=== PATIENT | female | born 1955 | race Caucasian/White ===

== ENCOUNTER 2020-01-15 07:13 | Inpatient (IN) ==
--- NOTE | 2020-01-03 09:03 | Anesthesiology Consultation ---
Date of Service January 03, 2020 Assessment & Plan (1) Encounter for pre-operative examination: Chart Review Chart Review: Acceptable Risk for Surgery and Patient NOT seen in Pre Admission Testing Pt seen by cardio 10/31/19= probable history of nonobstructive CAD with the most recent cath in approximately 2007. Questionable history of CHF. Hypertension. Patient underwent recent echo, which revealed normal LV size with hyperdynamic function and EF of 70%, type I diastolic dysfunction, normal RV size and function, no significant valvular heart disease, degree of tricuspid regurgitation was inadequate to assess her degree of of pulmonary hypertension (unable to obtain ECHO report from cardio office). Patient's recent stress test and echo are reassuring. There is nothing to suggest significant RV dysfunction or pulmonary hypertension. "I believe her risk of cardiac complications is in the range of 3%. This includes heart attack, dying from cardiac causes, arrhythmias and congestive heart failure. From my standpoint, she can proceed with the surgery. She does have significant underlying lung disease, which will also potentially complicate her surgery." Follow-up in 6 months. History Surgery Operation Date: 01/15/20 07:00 Proposed Procedures p Right Total Hip Arthroplasty - Colby Ryan MD Height/Weight Height: 5 ft 4 in Weight: 115.213 kg Allergies Allergy/AdvReac Type Severity Reaction Status Date / Time Tetracyclines Allergy Mild Rash Verified 12/13/19 13:16 Medications Home Medications Medication Instructions Recorded Confirmed Last Taken albuterol sulfate 2 inh INHALATION QID PRN 10/25/19 10/25/19 Unknown amlodipine 2.5 mg PO QPM 10/25/19 10/25/19 Unknown cholecalciferol (vitamin D3) 2,000 unit PO QPM 10/25/19 10/25/19 Unknown [Vitamin D3] furosemide 40 mg PO BID PRN 10/25/19 10/25/19 Unknown hydrocodone-acetaminophen 1 tab PO Q4H PRN 10/25/19 10/25/19 Unknown magnesium oxide 400 mg PO QPM 10/25/19 10/25/19 Unknown naproxen [Naprosyn] 500 mg PO BID PRN 10/25/19 10/25/19 Unknown nitroglycerin [Nitro-Dur] 1 patch TRANSDERMAL DAILY 10/25/19 10/25/19 Unknown omega 6-bwf-ffh-fish oil [Fish Oil] 1 cap PO QPM 10/25/19 10/25/19 Unknown omeprazole 20 mg PO BID 10/25/19 10/25/19 Unknown potassium chloride 24 meq PO DAILY 10/25/19 10/25/19 Unknown Past Medical History Medical History (Updated 01/07/20 @ 14:39 by Poonam Batista PA-C) Anxiety Chronic back pain Chronic obstructive pulmonary disease GERD (gastroesophageal reflux disease) Heart palpitations ON NITRO PATCH DAILY- BETA BLOCKERS CAUSE FATIGUE PER CARDIO NOTE Hypertension Non-occlusive coronary artery disease Presumed per cardio note (had cardiac cath 2003 and 2007) On home oxygen therapy WEARS 2.5L AT HS CARLOS (obstructive sleep apnea) Rheumatoid arthritis Past Family History Family History Father Family history of diabetes mellitus Past Surgical History Surgical History (Updated 01/07/20 @ 14:33 by Poonam Batista PA-C) History of cardiac cath X 2-LAST ONE 10 YRS AGO History of cholecystectomy History of colonoscopy History of esophagogastroduodenoscopy (EGD) Social History Smoking Status: Current every day smoker tobacco type: cigarettes Do You Dip or Chew Tobacco: No Smoking End Date: 1 PPD "ONLY SMOKES HALF THE CIGG" Hx Alcohol Use: No Hx Substance Use: No Testing Laboratory Results Blood Type O Positive 12/19/19 14:33 Antibody Screen NEGATIVE 12/19/19 14:33 Laboratory Tests 12/19/19 12/19/19 12/19/19 14:31 14:31 14:31 WBC 7.81 Hgb 13.2 Hct 40.5 Plt Count 264 PT 9.9 INR 0.9 APTT 29.6 Sodium 139 Potassium 3.6 Chloride 106 Carbon Dioxide 28 BUN 18 Creatinine 0.66 Glucose 89 Electrocardiogram Date: 10/11/19 Findings: + NSR @ (74) Nonspecific ST abnormality Chest X-Ray Date: 12/19/19 Mild cardiomegaly. Mild chronic venolymphatic congestive change may be present. No other convincing evidence of acute cardiopulmonary disease. Stress Test Date: 10/17/19 Type: DSE Resting EF: 70% Resting LV Function: Hyperdynamic Resting RWMA: + none Negative dobutamine EKG for ischemia. Mild cLVH. Negative DSE for ischemia at 88%MPHR.
--- NOTE | 2020-01-14 13:49 | History & Physical Report ---
Date of Service January 14, 2020 Assessment & Plan (1) Degenerative joint disease of right hip: Approximately 20 minutes were spent with the patient and her daughter reviewing operative procedure, postoperative recovery, physical therapy requirements and medication use. Postoperative prescriptions for oxycodone and Coumadin will be provided at discharge from the hospital. Anticipate discharge to home with home health nursing or placement at a intermediate facility. Preoperative lab work, EKG, and chest x-ray have been ordered. She has already seen cardiology and been given clearance to proceed. Risk of cardiac complications is in the range of 3%. The patient answers negative to the COVID questions. She will obtain COVID testing a few days prior to surgery and then self quarantine. She already has a walker. New x-rays were obtained today. The patient's surgery is elective, but urgent secondary to her level of pain and the extent of her degenerative disease. History of Present Illness Chief Complaint: Right hip pain Primary Care Provider: Hilaria Rahman MD This 64-year-old white female presents today with her daughter, for evaluation of a longstanding history of right hip pain. Symptoms have been ongoing for greater than a year. She has tried activity modification, intraarticular cortisone injections, and oral pain medications with minimal improvement. No specific trauma. She states she has been through a weight loss program and lost approximately 100 pounds total. She is a smoker. She has tried NSAIDs, which have not helped with the pain. She is currently on hydrocodone for pain management. She has difficulty with ambulating any significant distance. She does use a walker as well as wheelchair to get around. Pain is worse with weightbearing. It is affecting her ADLs. Preoperative imaging has been obtained. She elects to proceed with Right total hip arthroplasty. Allergies Allergy/AdvReac Type Severity Reaction Status Date / Time Tetracyclines Allergy Mild Rash Verified 12/13/19 13:16 Ewoimxv-Ymu-Che Reductase AdvReac Mild muscle Verified 01/14/20 13:49 Inhibitor aches Home Medications Home Medications Medication Instructions Recorded Confirmed Type albuterol sulfate 2 inh INHALATION QID PRN 10/25/19 10/25/19 History amlodipine 2.5 mg PO QPM 10/25/19 10/25/19 History cholecalciferol (vitamin D3) 2,000 unit PO QPM 10/25/19 10/25/19 History [Vitamin D3] furosemide 40 mg PO BID PRN 10/25/19 10/25/19 History hydrocodone-acetaminophen 1 tab PO Q4H PRN 10/25/19 10/25/19 History magnesium oxide 400 mg PO QPM 10/25/19 10/25/19 History naproxen [Naprosyn] 500 mg PO BID PRN 10/25/19 10/25/19 History nitroglycerin [Nitro-Dur] 1 patch TRANSDERMAL DAILY 10/25/19 10/25/19 History omega 5-eft-azy-fish oil [Fish Oil] 1 cap PO QPM 10/25/19 10/25/19 History omeprazole 20 mg PO BID 10/25/19 10/25/19 History potassium chloride 24 meq PO DAILY 10/25/19 10/25/19 History Past Med/Surg History Medical History Anxiety Chronic back pain Chronic obstructive pulmonary disease GERD (gastroesophageal reflux disease) Heart palpitations ON NITRO PATCH DAILY- BETA BLOCKERS CAUSE FATIGUE PER CARDIO NOTE Hypertension Non-occlusive coronary artery disease Presumed per cardio note (had cardiac cath 2003 and 2007) On home oxygen therapy WEARS 2.5L AT HS CARLOS (obstructive sleep apnea) Rheumatoid arthritis Surgical History History of cardiac cath X 2-LAST ONE 10 YRS AGO History of cholecystectomy History of colonoscopy History of esophagogastroduodenoscopy (EGD) Family History Father Family history of diabetes mellitus Social History Preferred Language: Paraguayan Communication Ability: Effective Visual Impairment: No Limitations Hearing Ability: Normal Operations Processor Required: No Beliefs That Will Affect Care: None marital status: / Current Living Situation: Family current occupational status: previously employed 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 Physical Exam Physical Exam: Weight is 117 kg, BMI 45.6. General: Well-developed, well-nourished, morbidly obese, elderly white female in no acute distress. Obvious discomfort. Sitting in a wheelchair. Alert and oriented. Skin: Warm and dry with good turgor. No rashes or lesions. No ecchymosis or erythema. HEENT: Normocephalic, atraumatic. Eyes: PERRLA, EOMI. Oropharynx and nares exam deferred. She is wearing a mask. Cardiovascular: RRR, no MGR. Lungs: Lungs have expiratory wheezing in all valdez, worse in the right lower lobe. This does not clear with coughing. No crackles or rhonchi. Fair air movement. Abdomen: Morbidly obese, bowel sounds present x4, soft, nontender. No organomegaly. No masses. Musculoskeletal: Right hip evaluation reveals no obvious asymmetry or deformity. She has no pain with palpation over the greater trochanter or IT band. She has significant discomfort with passive and active motion of the hip. Hip flexion only to around 90 degrees, internal and external rotation. It is also limited for internal and external rotation, to about 5 degrees in either direction. Strength is 3/5 for resisted hip flexion. Intact motor function of the knee. Neurologic: Gross sensation is intact across both lower extremities by soft touch. Peripheral pulses are 1+. Results & Data Results & Data ([facility]) Diagnostic Findings Radiographic imaging previously obtained shows endstage DJD of her right hip. Periarticular osteophytes, subchondral sclerosis, and joint space narrowing are all present. Subchondral cyst formation is also present.
[~2020-01-15 07:13] MED LIST: CEFAZOLIN 3000MG 72.5 ML IV SCH; LR 15ML/HR IV SCH; LR 60ML/HR IV SCH; ROPIVACAINE 0.5% HCL/PF 150 MG, BUPIVACAINE 0.5% MPF 30 ML, EPINEPHrine 0.15 MG, Ketoro... INFIL SCH; TRANEXAMIC ACID 1,000 MG **IV Pre-op IV SCH
[2020-01-15] MEDS ORDERED: BUPIVACAINE 0.5 % 5 MG/1 ML PF 10ML VIAL ONE (07:39)
[2020-01-15] MEDS ORDERED: MIDAZOLAM HCL 1 MG/ML 2ML VIAL ONE (08:17)
[2020-01-15] MEDS ORDERED: fentaNYL citrate 100 MCG/2 ML VIAL ONE (08:17)
--- NOTE | 2020-01-15 08:29 | History & Physical Bridge Note ---
Date of Service January 15, 2020 History & Physical Bridge Note I have examined the patient, reviewed the History & Physical and in the interval since the performance of the History & Physical I have noted the following changes of clinical significance: consent obtained/covid screen negative /site verified.no changes noted
[2020-01-15] MEDS ORDERED: ATROPINE SULFATE 0.1 MG/ML 10ML SYR IV PRN (08:52)
[2020-01-15] MEDS ORDERED: ePHEDrine sulfate 50 MG/ML AMP IV PRN (08:52)
[2020-01-15] MEDS ORDERED: ONDANSETRON INJ 2 MG/ML 2 ML VIAL IV PRN ×2 (08:52→12:05)
[2020-01-15] MEDS ORDERED: fentaNYL citrate 100 MCG/2 ML VIAL IV PRN (08:52)
[2020-01-15] MEDS ORDERED: HYDROmorphone INJ 1 MG/ML SYRINGE IV PRN (08:52)
[2020-01-15] MEDS ORDERED: ORTHO JOINT ANESTHETIC ONE (08:53)
--- NOTE | 2020-01-15 10:52 | Post Operative Brief Note ---
Immediate Post Op Note v1 Date of Surgery January 15, 2020 Pre & Post Diagnosis Operation Date: 01/15/20 09:30 Pre-Op Diagnosis: Right Hip Degenerative Joint Disease Post-Op Diagnosis: Right Hip Degenerative Joint Disease I identified the patient and participated in the time-out.: Yes Procedure Operation Date: 01/15/20 09:30 Actual Procedures p Right Total Hip Arthroplasty, Uncemented(Right) - Colby Ryan MD Surgeon Colby Ryan MD [facility] Estimated Blood Loss 200 Findings Consistent with Post-Op Diagnosis
--- NOTE | 2020-01-15 11:09 | Operative Report ---
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 She had tried conservative care measures including activity modification, oral pain medication, and assistive devices, without improvement. She elected to proceed with surgical intervention after being educated about potential risks and outcomes. Preoperative imaging was obtained. Description of Procedure Patient was administered a spinal anesthetic and then taken to the operating room where she was given sedation. She was prepped and draped in the usual sterile fashion. Please see Dr. Ryan's operative report for specifics of the procedure. I was present for the entire case from initial patient positioning through final wound closure. Assistance was provided in tissue retraction, hemostasis, trial implant placement, final implant placement, and final wound closure. Patient was taken to the recovery room in satisfactory condition. I attest to the content of the Intraoperative Record and any orders documented therein. Any exceptions are noted below.
[2020-01-15] MEDS ORDERED: PROPOFOL IV EMULSION 10 MG/ML 20 ML VIAL IV ONE (11:11)
--- NOTE | 2020-01-15 11:33 | Operative Report (OR) ---
DATE OF OPERATION: 01/15/2020 SURGEON: Colby Ryan MD. FINANCIAL SYSTEMS MANAGER: Jere Fisher PA-C. No resident or fellow available. PREOPERATIVE DIAGNOSIS: Severe osteoarthritis with marked deformity of her right hip. POSTOPERATIVE DIAGNOSIS: Severe osteoarthritis with marked deformity of her right hip. OPERATION PERFORMED: Noncemented right hip replacement. SUMMARY OF IMPLANTS: Size 50 acetabular shell sector cup, size 25 screw, size 32 x 50 +4 neutral liner, 3 high offset Tri-Lock stem 32+5 ceramic head. ESTIMATED BLOOD LOSS: 200 mL. PATHOLOGY: Pending on bone. DEEP VENOUS THROMBOSIS PROPHYLAXIS: Per protocol. DESCRIPTION OF OPERATION: The patient was appropriately identified, site verified, consent verified. Antibiotics confirmed an as being given. The right lower extremity was prepped and draped in usual routine fashion with the patient in left lateral decubitus position. She is a very large woman with high BMI. Appropriate incision made. Two Charnleys were required for retraction. IT band and gluteus perry fascia opened, care taken to protect the sciatic nerve with deep retractors. Short external rotators released. Capsule T'd. Hip dislocated. Femoral neck resected. There was a large involuted labrum, marked degenerative change, hypertrophic synovium and osteophytes. These were all cleaned out. Serial reaming carried up to a 50 and a 50 cup impacted into appropriate anteversion and inclination. A 6.5 x 25 screw was placed with excellent purchase. A trial liner was seated. Femur was then flexed and internally rotated. The proximal femur prepared with box maker wood, canal finder, lateralizing rasp, and serial broaching up to a size 3 and trial reduction with the appropriate implants was very stable and leg lengths were good. The hip was then dislocated. All remaining trial elements were removed. The wound was irrigated with Betadine, Pulsavac, hole eliminator seated, permanent liner seated, permanent stem and head seated. The hip reduced. It was stable in all planes. Leg lengths good. The wound was irrigated with Betadine, Pulsavac and closed deep layers using #2 Vicryl, 2-0 Vicryl and stainless steel clips. Appropriate dressing applied. She will have a Prevena based on size. She was transferred to recovery room in satisfactory condition having tolerated the procedure well. PERIOPERATIVE SITUATION: A large woman with high BMI, severe disease in the femoral neck with acetabular erosion, high risk patient, cleared for surgery. She understands the risks as well as her family. Please see consent. I attest to the content of the Intraoperative Record and any orders documented therein. Any exception s are noted below.
--- NOTE | 2020-01-15 11:47 | XRay Report ---
AP PELVIS History: Right total hip arthroplasty. Degenerative arthritis. Postop. FINDINGS: The patient is status post a right total hip arthroplasty. The hardware is intact. No fract ure or dislocation. Skin yamileth are in place. IMPRESSION: Right total hip arthroplasty. No evidence for hardware complication ACT 112: Negative or not required by law. Electronically signed by: Yang Loza M.D. 01/15/2020 11:46 AM
[2020-01-15] MEDS ORDERED: METOCLOPRAMIDE HCL INJ 5 MG/ML 2 ML VIAL IV PRN (12:05)
[2020-01-15] MEDS ORDERED: ALUMINUM/MAGNESIUM SUSP 30 ML UDC PO PRN (12:05)
[2020-01-15] MEDS ORDERED: bisacodyL 10 MG SUPP PR PRN (12:05)
[2020-01-15] MEDS ORDERED: DiphenhydrAMINE HCL 50 MG/ML VIAL IV PRN (12:05)
[2020-01-15] MEDS ORDERED: NALOXONE HCL 0.4 MG/1 ML VIAL/CARP IV PRN (12:05)
[2020-01-15] MEDS ORDERED: MAGNESIUM HYDROXIDE SUSP 30 ML UDC PO PRN (12:05)
[2020-01-15] MEDS ORDERED: ALBUTEROL HFA 8 GM INHALER INH PRN (12:05)
[2020-01-15] MEDS ORDERED: SODIUM CHLORIDE 0.9% 1000ML 1,000 ML IV SCH (12:35)
[2020-01-15] MEDS ORDERED: VANCOMYCIN HCL 1,750 MG in SODIUM CHLORIDE 0.9% 500 ML IV ONE (13:15)
[2020-01-15] MEDS: KETOROLAC 30 MG/ML VIAL IV SCH ×3 (13:20→23:29)
--- NOTE | 2020-01-15 13:25 | Progress Notes ---
DATE: 01/15/2020 SUBJECTIVE: Status post right total hip replacement. The patient is doing well and sitting up in bed. She denies any chest pain, shortness of breath, fever, chills, nausea, vomiting or headache. OBJECTIVE: Vital signs are stable. She is afebrile. Neurologic exam is limited by spinal wearing off. Hip is located. Postop x-rays look excellent. ASSESSMENT: Doing well status post right total hip replacement for severe disease. Continue with postop care pathway and prepare for discharge tomorrow.
--- NOTE | 2020-01-15 13:32 | Discharge Summary (DS) ---
CHIEF COMPLAINT: Right hip pain. HISTORY OF PRESENT ILLNESS: The patient is admitted for elective right total hip replacement for severe disease. Hospital course to date has been uneventful. At this point in time, she will be ambulatory to tolerance with postural indiscretion restrictions. PAST MEDICAL HISTORY: Remarkable for anxiety, chronic back pain, chronic obstructive pulmonary disease, GERD, heart palpitations, hypertension, coronary artery disease, obstructive sleep apnea, rheumatoid arthritis. PAST SURGICAL HISTORY: Reveals that she has had cardiac cath in the past, cholecystectomy, colonoscopy, EGD. FAMILY HISTORY: Reveals diabetes mellitus. SOCIAL HISTORY: Reveals that she has no visual or communication or hearing problems. She does not require an automobile technician. 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 She feels safe at home. She does smoke. No alcohol use. No substance use. REVIEW OF SYSTEMS: Noncontributory. Postoperative x-rays look excellent. ASSESSMENT: Status post right total hip replacement. Plan is for social service assessment. Case management assessment and discharge tomorrow. She will be placed in a Prevena based on high BMI.
[2020-01-15] MEDS: ACETAMINOPHEN 500 MG TAB PO SCH ×2 (14:28→21:05)
[2020-01-15] MEDS: HYDROmorphone INJ 0.5 MG/0.5 ML SYR IV PRN ×2 (15:10→19:39)
[2020-01-15] MEDS ORDERED: Nursing to Pharmacy Communication ONE (15:25)
[2020-01-15] MEDS ORDERED: ORTHO WARFARIN NOMOGRAM SCH (15:30)
[2020-01-15] MEDS: ASCORBIC ACID 500 MG TAB PO SCH (15:56)
[2020-01-15] MEDS: FERROUS GLUCONATE 324 MG TAB PO SCH (15:56)
[2020-01-15] MEDS ORDERED: WARFARIN SOD 5 MG TAB PO ONE (16:00)
--- NOTE | 2020-01-15 16:36 | Anesthesiology Progress Note ---
Date of Service January 15, 2020 Anesthesia Post Procedure Vital Signs Vital Signs: Temp Pulse Pulse Pulse Resp BP BP 01/15/20 15:17 36.6 C 82 16 145/88 H 01/15/20 13:10 36.5 C 18 L 70 158/87 H 01/15/20 12:41 36.5 C 75 18 153/98 H 01/15/20 12:08 36.6 C 75 16 144/78 H 01/15/20 11:55 75 16 145/83 H 01/15/20 11:45 36.3 C L 75 18 140/86 01/15/20 11:35 72 18 161/82 H 01/15/20 11:25 70 18 151/94 H 01/15/20 11:15 81 20 134/91 01/15/20 11:05 36.5 C 91 H 16 158/91 H 01/15/20 08:11 36.9 C 76 20 134/102 H Pulse Ox 01/15/20 15:17 91 01/15/20 13:10 96 01/15/20 12:41 96 01/15/20 12:08 95 01/15/20 11:55 98 01/15/20 11:45 96 01/15/20 11:35 95 01/15/20 11:25 97 01/15/20 11:15 100 01/15/20 11:05 100 01/15/20 08:11 95 Pain Intensity Right Leg: Pain Intensity: 10 Transfer of Care Handoff Completed per policy Notes Mental Status: alert / awake / arousable and participated in evaluation Patient Amnestic to Procedure: Yes Nausea / Vomiting: adequately controlled Pain: adequately controlled Airway Patency, RR, SpO2: stable & adequate BP & HR: stable & adequate Hydration State: stable & adequate Neuraxial Anesthesia: was administered and sensory block is resolving Anesthetic Complications: no major complications apparent and Pt Satisfied with anesthetic care
[2020-01-15] MEDS: CEFAZOLIN 2000MG 2,000 MG/15 ML SYR IV SCH (16:38)
[2020-01-15] MEDS ORDERED: TRANEXAMIC ACID / 0.7% NACL 1,000 MG/100 ML BAG IV SCH (17:15)
[2020-01-15] MEDS: PANTOprazole 40 MG TAB PO SCH (20:48)
[2020-01-15] MEDS: DOCUSATE SODIUM 100 MG CAP PO SCH (20:49)
[2020-01-15] MEDS ORDERED: SENNA 8.6 MG TAB PO SCH (21:00)
[2020-01-15] MEDS ORDERED: AMLODIPINE BESYLATE 5 MG TAB PO SCH (21:00)
[2020-01-15] MEDS ORDERED: MAGNESIUM OXIDE 400 MG TAB PO SCH (21:00)
[2020-01-16] MEDS: CEFAZOLIN 2000MG 2,000 MG/15 ML SYR IV SCH (01:22)
[2020-01-16] MEDS: OXYCODONE HCL IR 5 MG TAB (IMMEDIATE RELEASE) PO PRN ×2 (01:22→09:05)
[2020-01-16] MEDS: KETOROLAC 30 MG/ML VIAL IV SCH (06:20)
[2020-01-16] MEDS: ACETAMINOPHEN 500 MG TAB PO SCH (06:20)
--- NOTE | 2020-01-16 07:26 | Progress Notes ---
DATE: 01/16/2020 SUBJECTIVE: Postop day #1 status post right total hip replacement. The patient is sitting up in bed. Pain is managed with oral meds. She notes no chest pain, shortness of breath, fever, chills, nausea, vomiting, or headache. OBJECTIVE: Vital signs are stable. She is afebrile. Laboratory work is pending. Wound dressing clean, dry, and intact. Neurovascular check, femoral sciatic nerve is good. Hip is located and has supple motion. She reacts with any type of activity with a blurting "ow" despite not causing pain. ASSESSMENT AND PLAN: Status post right hip replacement. At this point in time, needs to be extremely motivated by personnel to get up and move. She will start her Coumadin again today. She needs to be mobilized and needs to have a Prevena placed. She is at high risk for DVT, PE based on her size. It was emphasized to her that she needs to get up and move around. She is also a tobacco user, needs to minimize that. She knows she is high risk and she decided to have the procedure. She will need to continue to be compliant as possible. We will discharge to home today after dressing change and PT, OT.
[2020-01-16 07:37] LABS: Basophils # (auto) 0.02 K/uL (0-0.2); Basophils % (auto) 0.2 %; Eosinophils # (auto) 0.14 K/uL (0-0.5); Eosinophils % (auto) 1.3 %; Hematocrit (blood only) 37.1 % (37-47); Hemoglobin 12.2 g/dL (12.0-16.0); Immature Granulocytes # (auto) 0.03 K/uL (0.00-0.02); Immature Granulocytes % (auto) 0.3 %; Lymphocytes # (auto) 1.87 K/uL (1.2-3.4); Lymphocytes % (auto) 16.9 %; Mean Corpuscular Hemoglobin 28.1 pg (25-34); Mean Corpuscular Hgb Conc 32.9 g/dL (32-36); Mean Corpuscular Volume 85.5 fL (80-100); Mean Platelet Volume 10.5 fL (7.4-10.4); Monocytes # (auto) 1.37 K/uL (0.11-0.59); Monocytes % (auto) 12.4 %; Neutrophils # (auto) 7.61 K/uL (1.4-6.5); Neutrophils % (auto) 68.9 %; Platelet Count 223 K/uL (130-400); RDW Standard Deviation 46.8 fL (36.4-46.3); Red Blood Count 4.34 M/uL (4.2-5.4); White Blood Count 11.04 K/uL (4.8-10.8)
[2020-01-16 07:45] LABS: Prothrombin Time 10.9 Seconds (9.0-12.0)
[2020-01-16] MEDS ORDERED: dexAMETHasone 10 MG in SYRINGE 0 ML IV SCH (08:00)
[2020-01-16 08:14] LABS: BUN Creatinine Ratio 26.5 (10-20); Calcium 9.1 mg/dl (8.5-10.1); Creatinine Clr Calc Pharmacy 115.8 ml/min; Est GFR (African American) 110.7; Est GFR (Non-African American) 95.5; Potassium 3.3 mmol/L (3.5-5.1)
[2020-01-16] MEDS: DOCUSATE SODIUM 100 MG CAP PO SCH (08:53)
[2020-01-16] MEDS: ASCORBIC ACID 500 MG TAB PO SCH (08:53)
[2020-01-16] MEDS: FERROUS GLUCONATE 324 MG TAB PO SCH (08:54)
[2020-01-16] MEDS: PANTOprazole 40 MG TAB PO SCH (08:55)
[2020-01-16] MEDS ORDERED: NITROGLYCERIN 0.2 MG/HR PATCH TD SCH (09:00)
[2020-01-16] MEDS ORDERED: MULTIVITAMIN TAB PO SCH (09:00)
[2020-01-16] MEDS ORDERED: POTASSIUM CHLORIDE 20 MEQ TABCR PO SCH (09:00)
[2020-01-16] MEDS ORDERED: NICOTINE 21 MG/24 HR TDSY TD SCH (09:00)
--- NOTE | 2020-01-16 10:38 | Orthopedic Progress Note ---
Date of Service January 16, 2020 Assessment & Plan (1) Status post total hip replacement, right: Patient's dressing was removed by me. Prevena wound VAC was placed. She will leave this in place for a week and follow-up with me in the office 01/22 at 11 AM for removal. PT/OT today. Weight-bear as tolerated. Coumadin today per nomogram. Prescriptions for Percocet 5/325 mg and Coumadin 2 mg were sent to her pharmacy. Total hip precautions were reviewed. Detailed written discharge instructions were provided. Patient will be discharged home with home health nursing services. Admission and Anticipated Discharge Date Admission Date: January 15, 2020 Subjective Patient is seen in her room this morning. She is sitting in a chair. She denies any chest pain, shortness of breath, nausea, vomiting, or abdominal pain overnight. She states her right hip is uncomfortable but denies any severe pain. She is inquiring about going home today versus tomorrow. Review of Systems Review of Systems: unchanged from yesterday Physical Exam Physical Exam: General: Well-developed, well-nourished, elderly female, in no acute distress. Sitting in a chair. Alert and oriented. Skin: Warm and dry with good turgor. No rashes or lesions. Expected postoperative ecchymosis at the right thigh. No erythema. Postsurgical dressing is in place. Upon removal, yamileth are in place. Minimal drainage on her dressings. No active bleeding. The patient is not diaphoretic. Musculoskeletal: Patient has intact motor function to the right leg. She is able to stand from a sitting position. She appears to bear full weight. Supple motion of the right hip. Neurologic: Gross sensation is intact across the lower extremities by soft touch. Peripheral pulses are 2+. Results & Data ([facility]) Vital Signs (Past 12 Hours) Vital Signs Temp Pulse Resp BP Pulse Ox 01/16/20 07:47 37 C 78 22 135/96 93 01/16/20 03:05 37.0 C 81 16 127/77 97 01/15/20 23:13 37.5 C 96 H 18 147/86 H 95 Laboratory Results H&H obtained this morning are 12.2 and 37.1. WBCs 11.0. INR is 1.0. PRP is unremarkable.
[2020-01-16] MEDS ORDERED: WARFARIN SOD 5 MG TAB PO ONE (12:00)
== END 2020-01-16 13:02 | disposition home health service (06) | DRG 470 ==
LOC: ASU 07:13 → 3N 11:17

== ENCOUNTER 2020-09-30 05:04 | Observation (INO) ==
--- NOTE | 2020-09-01 11:58 | PAT Medication Instructions ---
Medication Instructions Date of Service September 01, 2020 Home Medications Medication Instructions Recorded oxycodone-acetaminophen [Percocet] 2 tab PO Q4H PRN #24 tab 01/16/20 albuterol sulfate 2 inh INHALATION QID PRN amlodipine 2.5 mg PO QPM cholecalciferol (vitamin D3) [Vitamin D3] 2,000 unit PO QPM magnesium oxide 400 mg PO QPM nitroglycerin [Nitro-Dur] 1 patch TRANSDERMAL DAILY omeprazole 20 mg PO BID potassium chloride 8 - 16 meq PO BID oxycodone-acetaminophen [Percocet] 2 tab PO Q4H PRN aspirin [Aspir-81] 81 mg PO QAM Continue as directed nitroglycerin [Nitro-Dur] 1 patch TRANSDERMAL DAILY ASK your prescriber and surgeon aspirin [Aspir-81] 81 mg PO QAM DO NOT take the morning of surgery potassium chloride 8 - 16 meq PO BID Take morning of surgery With a small sip of water, OTHERWISE NOTHING TO EAT OR DRINK AFTER MIDNIGHT: albuterol sulfate 2 inh INHALATION QID PRN (use if needed; please bring with you to hospital day of surgery if possible) omeprazole 20 mg PO BID oxycodone-acetaminophen [Percocet] 2 tab PO Q4H PRN (okay to take up to 4 hours prior to surgery if needed) Take evening before surgery albuterol sulfate 2 inh INHALATION QID PRN (if needed) amlodipine 2.5 mg PO QPM cholecalciferol (vitamin D3) [Vitamin D3] 2,000 unit PO QPM magnesium oxide 400 mg PO QPM omeprazole 20 mg PO BID potassium chloride 8 - 16 meq PO BID oxycodone-acetaminophen [Percocet] 2 tab PO Q4H PRN (if needed) Other Notes If you have any questions please call us at [phone] or [phone] or [phone] or [phone]
--- NOTE | 2020-09-03 14:52 | Anesthesiology Consultation ---
Date of Service September 03, 2020 Assessment & Plan (1) Encounter for pre-operative examination: Chart Review Chart Review: Pending: Refer to Additional Notes / Consult section (pending surgeon ordered PCP clearance, most recent cardio note, and preop Covid testing ) and Patient seen in Pre Admission Testing Awaiting surgeon ordered PCP clearance scheduled 09/14/20 or 09/15/20. Will attempt to get most recent cardio note Per PAT appt on 09/03/20, pt resides in [facility]. Wears mask, uses good hand hygiene and socially distances. Pt's son tested Covid positive 07/12/20- pt did quarantine from patient. Son's symptoms have resolved and he is back to work. Pt denies any current or recent Covid symptoms with exception to chronic minimal cough from smoking- unchanged. Scheduled for preop Covid testing = will await results Right MISAEL 01/15/20= Done with SAB at L3-4 with two attempts- no anesthesia issues noted per anesthesia record. Teaching & Discussion Pre-Anesthesia Teaching/Discussion Notes: Instructed NPO after midnight before surgery,except medications with 15 cc of water. Medication instructions provided according to the PAT guidelines. History Surgery Operation Date: 09/30/20 07:15 Proposed Procedures p Right Total Knee Arthroplasty - Colby Ryan MD Height/Weight Height: 5 ft 4.5 in Weight: 114.2 kg Allergies Allergy/AdvReac Type Severity Reaction Status Date / Time Bgnghig-Sif-Rqu Reductase AdvReac Mild muscle Verified 08/11/20 13:40 Inhibitor aches Medications Home Medications Medication Instructions Recorded Confirmed Last Taken albuterol sulfate 2 inh INHALATION QID PRN 10/25/19 08/11/20 01/15/20 04:00 amlodipine 2.5 mg PO QPM 10/25/19 08/11/20 01/14/20 18:00 cholecalciferol (vitamin D3) 2,000 unit PO QPM 10/25/19 08/11/20 01/14/20 18:00 [Vitamin D3] magnesium oxide 400 mg PO QPM 10/25/19 08/11/20 01/14/20 18:00 nitroglycerin [Nitro-Dur] 1 patch TRANSDERMAL DAILY 10/25/19 08/11/20 01/14/20 18:00 omeprazole 20 mg PO BID 10/25/19 08/11/20 01/14/20 06:00 potassium chloride 8 - 16 meq PO BID 10/25/19 08/11/20 01/14/20 18:00 oxycodone-acetaminophen [Percocet] 2 tab PO Q4H PRN #24 tab 01/16/20 08/11/20 Unknown aspirin [Aspir-81] 81 mg PO QAM 08/11/20 08/11/20 Unknown Past Medical History Medical History Anxiety Chronic back pain Chronic obstructive pulmonary disease Breathing - stable and controlled GERD (gastroesophageal reflux disease) Well controlled and stable Heart palpitations ON NITRO PATCH DAILY- BETA BLOCKERS CAUSE FATIGUE PER CARDIO NOTE Hypertension Non-occlusive coronary artery disease Presumed per cardio note (had cardiac cath 2003 and 2007) On home oxygen therapy WEARS 2.5L AT HS CARLOS (obstructive sleep apnea) Was not able to complete sleep study for device- uses only oxygen at night Rheumatoid arthritis Does not follow with rheum Exercise / Class Metabolic Activity III < 4 Walking/Shop/Light housework (no chest pain or SOB with short distances, flat surface ambulation - uses cane ) Past Family History Family History Father Family history of diabetes mellitus Past Surgical History Surgical History History of cardiac cath X 2-LAST ONE 10 YRS AGO History of cholecystectomy History of colonoscopy History of esophagogastroduodenoscopy (EGD) History of total hip arthroplasty RIGHT Past Anesthesia History No Hx of Anesthesia Complications and No Family Hx of Anesthesia Complications History of PONV No Hx of PONV and No Hx of Motion Sickness Social History Smoking Status: Current every day smoker tobacco type: cigarettes Smoking cigarettes per day: 10 CIGS A DAY PAST 2-3 YRS-HAS SMOKED X 40 YRS Do You Dip or Chew Tobacco: No Hx Alcohol Use: No Hx Substance Use: Yes substance use type: prescription drug Review of Systems Chronic cough and chronic wheezing from smoking - stable and unchanged Blood transfusion- s/p childbirth Patient denies chest pain, shortness of breath at rest, reflux, palpitations. No hx of seizures, stroke, MA. No hx of blood clots. Physical Exam Vital Signs VITALS BP 135/86 P 69 TEMP 97.9 SP02 94% RESP 16 Constitutional no acute distress ENMT Mouth: no TMJ clicking Thyromental Distance: < 3.5 Finger Breadths (3.0) Mallampati Class: II (smaller ) Full denture top and bottom Neck + short neck, + thick neck and + limited neck extension (moderate ) Respiratory normal respiratory effort; no respiratory distress Auscultation: no wheezes Course breath sounds throughout Cardiovascular Rate/Rhythm: regular rate and regular rhythm Heart Sounds: no murmur Vessels: no carotid bruit Musculoskeletal Spine: + pain with cervical ROM (mild tightness ) Extremities: extremities normal to inspection Psychiatric Orientation: alert Testing Laboratory Results 09/03/20 15:06 09/03/20 15:06 PT 10.3 Seconds (9.0-12.0) 09/03/20 15:06 INR 1.0 (0.9-1.1) 09/03/20 15:06 APTT 31.0 Seconds (21.0-31.0) 09/03/20 15:06 Urine Color Yellow 09/03/20 Unknown Urine Appearance Clear (Clear) 09/03/20 Unknown Urine pH 7.5 (4.5-7.5) 09/03/20 Unknown Ur Specific [place] 1.020 (1.000-1.030) 09/03/20 Unknown Urine Protein Negative (Negative) 09/03/20 Unknown Urine Glucose (UA) Negative (Negative) 09/03/20 Unknown Urine Ketones Negative (Negative) 09/03/20 Unknown Urine Nitrite Negative (Negative) 09/03/20 Unknown Ur Leukocyte Esterase Negative (Negative) 09/03/20 Unknown Blood Type O Positive 09/03/20 15:06 Antibody Screen NEGATIVE 09/03/20 15:06 Electrocardiogram Date: 09/03/20 NSR with sinus arrythmia at 68bpm. Normal EKG. Chest X-Ray Date: 09/03/20 Findings: + NAD and + cardiomegaly (mild) Unchanged interstitial coarsening no pneumothorax, pleural effusion, airspace consolidation or overt pulmonary edema. Stress Test Date: 10/17/19 Type: DSE Resting EF: 70% Resting LV Function: Hyperdynamic Resting RWMA: + none Negative dobutamine EKG for ischemia. Mild cLVH. Negative DSE for ischemia at 88%MPHR. Cervical Spine Date: 09/03/20 There is multilevel disc space narrowing present, moderate at C5-C6. Mostly mild multilevel spondylitic spurring with moderate facet arthrosis. 2 mm retrolisthesis C5 on C6 is unchanged with neutral, flexion and extension. No acute fracture or subluxation.
--- NOTE | 2020-09-03 15:44 | XRay Report ---
XR chest Pre-admission PA/Lat HISTORY: 64 years-old Female pat preoperative exam. Acute cough. COMPARISON: Chest radiographs 12/19/2019 TECHNIQUE: PA and lateral views of the chest FINDINGS: Cardiac silhouette is mildly enlarged. Unchanged interstitial coarsening no pneumothorax, pleural eff usion, airspace consolidation or overt pulmonary edema. Degenerative changes of the shoulders and spi ne. Cholecystectomy. IMPRESSION: No acute process. ACT 112: Negative or not required by law. The above report was generated using voice recognition software. It may contain grammatical, syntax o r spelling errors. Electronically signed by: Fran Vee M.D. 09/03/2020 3:42 PM
--- NOTE | 2020-09-03 15:45 | XRay Report ---
XR cervical spine 2 or 3V HISTORY: 64 years-old Female preop- RA- 2-3 veiw with flex, ext, neut positions preoperative exam. COMPARISON: None TECHNIQUE: 3 views of the cervical spine FINDINGS: Patient is edentulous. Unremarkable soft tissues. Demineralized appearance of the bones. There is mul tilevel disc space narrowing present, moderate at C5-C6. Mostly mild multilevel spondylitic spurring with moderate facet arthrosis. 2 mm retrolisthesis C5 on C6 is unchanged with neutral, flexion and ex tension. IMPRESSION: 1. No acute fracture or subluxation. 2. Degenerative changes as above. 3. Unchanged alignment with neutral, flexion and extension. ACT 112: Negative or not required by law. The above report was generated using voice recognition software. It may contain grammatical, syntax o r spelling errors. Electronically signed by: Fran Vee M.D. 09/03/2020 3:44 PM
[2020-09-03 15:49] LABS: Appearance Urine Clear (Clear); Bilirubin Urine Negative (Negative); Blood Urine Negative (Negative); Color Urine Yellow; Glucose Urine UA Negative (Negative); Ketones Urine Negative (Negative); Leukocyte Esterase Urine Negative (Negative); Nitrite Urine Negative (Negative); Protein Urine Negative (Negative); Urobilinogen Urine Negative (Negative); pH Urine 7.5 (4.5-7.5)
[2020-09-03 15:53] LABS: Basophils # (auto) 0.04 K/uL (0-0.2); Basophils % (auto) 0.5 %; Eosinophils # (auto) 0.31 K/uL (0-0.5); Eosinophils % (auto) 4.1 %; Hemoglobin 13.5 g/dL (12.0-16.0); Immature Granulocytes # (auto) 0.02 K/uL (0.00-0.02); Immature Granulocytes % (auto) 0.3 %; Lymphocytes # (auto) 2.66 K/uL (1.2-3.4); Lymphocytes % (auto) 34.9 %; Mean Corpuscular Hemoglobin 27.9 pg (25-34); Mean Corpuscular Hgb Conc 32.1 g/dL (32-36); Mean Corpuscular Volume 86.8 fL (80-100); Mean Platelet Volume 10.1 fL (7.4-10.4); Monocytes % (auto) 6.6 %; Neutrophils % (auto) 53.6 %; Platelet Count 243 K/uL (130-400); RDW Coefficient of Variation 16.2 % (11.5-14.5); RDW Standard Deviation 51.5 fL (36.4-46.3); Red Blood Count 4.84 M/uL (4.2-5.4); White Blood Count 7.63 K/uL (4.8-10.8)
[2020-09-03 15:58] LABS: Partial Thromboplastin Ratio 1.1; Prothrombin Time 10.3 Seconds (9.0-12.0)
[2020-09-03 16:12] LABS: BUN Creatinine Ratio 26.1 (10-20); Calcium 9.4 mg/dl (8.5-10.1); Creatinine Clr Calc Pharmacy 88.7 ml/min; Est GFR (African American) 91.8; Est GFR (Non-African American) 79.2
--- NOTE | 2020-09-04 06:22 | Electrocardiogram Report ---
Test Reason : Blood Pressure : / mmHG Vent. Rate : 068 BPM Atrial Rate : 068 BPM P-R Int : 174 ms QRS Dur : 090 ms QT Int : 422 ms P-R-T Axes : 054 035 041 degrees QTc Int : 448 ms Normal sinus rhythm with sinus arrhythmia Normal ECG When compared with ECG of 26-JUL-2008 11:05, Nonspecific T wave abnormality no longer evident in Inferior leads T wave inversion no longer evident in Anterior leads Confirmed by Calvin Arredondo ([id number]) on 09/04/2020 6:21:57 AM Referred By: Colby Ryan Confirmed By:Calvin Arredondo
--- NOTE | 2020-09-06 19:23 | History & Physical Report ---
Date of Service September 06, 2020 Assessment & Plan (1) Right knee DJD: Postoperative prescriptions for Percocet and Coumadin will be provided at discharge from the hospital. Anticipate discharge to home with home health services. Preoperative lab work, EKG, and chest x-ray have been ordered. Medical clearance has been requested from her PCP, Hilaria Rahman. COVID-19 nasal swab was ordered. The patient is aware of the COVID-19 risks associated with surgery. She is currently asymptomatic of any COVID-19 symptoms. PDMP was checked and there are no concerning findings. She already has a walker and cane. Informed written consent will be obtained the morning of surgery. History of Present Illness Chief Complaint: Right knee pain Primary Care Provider: Hilaria Rahman MD This 64-year-old white female presents today with her daughter, for her preoperative history and physical. She is scheduled to undergo a right knee total knee arthroplasty on 09/30/2020. The patient has had a longstanding history of right knee pain. Pain is worse with weightbearing. It is affecting her ADLs. She has tried activity modification, oral pain medication, and viscosupplementation without improvement. She has DJD in both knees, but the right knee is the worst. Denies any numbness or tingling. Preoperative imaging has been obtained. She previously went through total hip arthroplasty 7 months ago and did well with that. Allergies Allergy/AdvReac Type Severity Reaction Status Date / Time Rudxuxo-Ftz-Utk Reductase AdvReac Mild muscle Verified 08/11/20 13:40 Inhibitor aches Home Medications Medication Instructions Recorded Confirmed Type albuterol sulfate 2 inh INHALATION QID PRN 10/25/19 08/11/20 History amlodipine 2.5 mg PO QPM 10/25/19 08/11/20 History cholecalciferol (vitamin D3) 2,000 unit PO QPM 10/25/19 08/11/20 History [Vitamin D3] magnesium oxide 400 mg PO QPM 10/25/19 08/11/20 History nitroglycerin [Nitro-Dur] 1 patch TRANSDERMAL DAILY 10/25/19 08/11/20 History omeprazole 20 mg PO BID 10/25/19 08/11/20 History potassium chloride 8 - 16 meq PO BID 10/25/19 08/11/20 History oxycodone-acetaminophen [Percocet] 2 tab PO Q4H PRN #24 tab 06/04/20 12/29/20 Rx aspirin [Aspir-81] 81 mg PO QAM 08/11/20 08/11/20 History Past Med/Surg History Medical History Anxiety Chronic back pain Chronic obstructive pulmonary disease Breathing - stable and controlled GERD (gastroesophageal reflux disease) Well controlled and stable Heart palpitations ON NITRO PATCH DAILY- BETA BLOCKERS CAUSE FATIGUE PER CARDIO NOTE Hypertension Non-occlusive coronary artery disease Presumed per cardio note (had cardiac cath 2003 and 2007) On home oxygen therapy WEARS 2.5L AT HS CALROS (obstructive sleep apnea) Was not able to complete sleep study for device- uses only oxygen at night Rheumatoid arthritis Does not follow with rheum Surgical History History of cardiac cath X 2-LAST ONE 10 YRS AGO History of cholecystectomy History of colonoscopy History of esophagogastroduodenoscopy (EGD) History of total hip arthroplasty RIGHT Family History Father Family history of diabetes mellitus Social History Smoking Status: Current every day smoker Cigarettes Per Day: 10 CIGS A DAY PAST 2-3 YRS-HAS SMOKED X 40 YRS; Second Hand Exposure: Yes (FAMILY SMOKED); Do You Dip or Chew Tobacco: No; Hx Alcohol Use: No Hx Substance Use: No Preferred Language: Uzbek Communication Ability: Effective Visual Impairment: No Limitations Hearing Ability: Normal Site Project Manager Required: No Beliefs That Will Affect Care: None marital status: Single Current Living Situation: Family current occupational status: previously employed 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 Physical Exam Physical Exam: Vitals: Height 157.5 cm, weight 114.4 kilograms, BMI 46.1. Temperature 36.6, BP 116/82, pulse 72, O2 sat 94% on room air. General: Well-developed, well-nourished, elderly, white female in no acute distress. Sitting in a chair. Alert and oriented. Morbidly obese. Skin: Warm and dry with fair turgor. No rashes or lesions. No ecchymosis or erythema. HEENT: Normocephalic, atraumatic. Eyes: PERRLA, EOMI. Oropharynx and nares exams deferred due to COVID precautions. She is wearing a mask. Heart: RRR, no MGR. Lungs: Expiratory wheezing in all valdez, worst in the right upper and lower valdez. It does not clear with coughing. No crackles or rhonchi. Fair air movement. Abdomen: Morbidly obese, bowel sounds present x4, soft, nontender. No organomegaly. No masses. Musculoskeletal: Right knee evaluation reveals no intraarticular effusion. No redness or warmth. The patient is ambulatory with antalgic gait. She has full terminal extension. Flexion to 95 degrees. Strength is 5/5 with fair quad tone. She has focal discomfort with palpation over the lateral joint line. No medial joint line discomfort. No palpable crepitus with motion. No defect in the patellar tendon or quadriceps tendon. Stable collateral ligaments. Neurologic: Gross sensation is intact across the right leg by soft touch. Peripheral pulses are 2+. Results & Data Results & Data ([facility]) Diagnostic Findings Radiographic imaging obtained today of the right knee shows end-stage DJD with tricompartmental arthritis, worst in the medial and patellofemoral joints. Periarticular osteophytes and subchondral sclerosis are also present.
[2020-09-30] MEDS ORDERED: ROPIVACAINE 0.5% HCL/PF 150 MG, BUPIVACAINE 0.75% MPF 20 ML, EPINEPHrine 0.15 MG, Ketor... INFIL SCH (06:00)
[2020-09-30] MEDS ORDERED: LR 60ML/HR IV SCH (06:00)
[2020-09-30] MEDS ORDERED: LR 500ML BOLUS, THEN 15ML/HR IV SCH (06:00)
[2020-09-30] MEDS ORDERED: TRANEXAMIC ACID 1,000 MG **IV Pre-op IV SCH (06:00)
[2020-09-30] MEDS ORDERED: ROPIVACAINE 0.5% 5 MG/ML 30 ML VIAL ONE (06:21)
[2020-09-30] MEDS ORDERED: BUPIVACAINE 0.5 % 5 MG/1 ML PF 10ML VIAL ONE (06:21)
--- NOTE | 2020-09-30 06:28 | History & Physical Bridge Note ---
Date of Service September 30, 2020 History & Physical Bridge Note I have examined the patient, reviewed the History & Physical and in the interval since the performance of the History & Physical I have noted the following changes of clinical significance: consent obtained/site verified/covid screen negative.no changes noted
[2020-09-30] MEDS ORDERED: fentaNYL citrate 100 MCG/2 ML VIAL ONE (06:38)
[2020-09-30] MEDS ORDERED: MIDAZOLAM HCL 1 MG/ML 2ML VIAL ONE (06:38)
[2020-09-30] MEDS ORDERED: ORTHO JOINT ANESTHETIC ONE (06:44)
[2020-09-30] MEDS ORDERED: fentaNYL citrate 100 MCG/2 ML VIAL IV PRN (07:04)
[2020-09-30] MEDS ORDERED: HYDROmorphone INJ 2 MG/ML SYR/VIAL IV PRN (07:04)
[2020-09-30] MEDS ORDERED: ePHEDrine sulfate 50 MG/ML AMP IV PRN (07:04)
[2020-09-30] MEDS ORDERED: ATROPINE SULFATE 0.1 MG/ML 10ML SYR IV PRN (07:04)
[2020-09-30] MEDS ORDERED: PROPOFOL IV EMULSION 10 MG/ML 20 ML VIAL IV ONE (07:33)
[2020-09-30] MEDS ORDERED: LIDOCAINE HCL 2% 2 ML VIAL/AMP(20MG/ML) INFIL ONE (07:33)
[2020-09-30] MEDS ORDERED: KETAMINE 50 MG/5 ML SYRINGE ONE (07:37)
--- NOTE | 2020-09-30 08:32 | Post Operative Brief Note ---
Immediate Post Op Note v1 Date of Surgery September 30, 2020 Pre & Post Diagnosis Operation Date: 09/30/20 07:00 Pre-Op Diagnosis: Right Knee Degenerative Joint Disease Post-Op Diagnosis: Right Knee Degenerative Joint Disease I identified the patient and participated in the time-out.: Yes Procedure Operation Date: 09/30/20 07:00 Actual Procedures p Right Total Knee Arthroplasty(Right) - Colby Ryan MD Surgeon Colby Ryan MD Logistics Officer luc/brigido Estimated Blood Loss 50 Findings Consistent with Post-Op Diagnosis
--- NOTE | 2020-09-30 08:42 | Operative Report ---
Post Operative Report Pre & Post Diagnosis Operation Date: 09/30/20 07:00 Pre-Op Diagnosis: Right Knee Degenerative Joint Disease Post-Op Diagnosis: Right Knee Degenerative Joint Disease I identified the patient and participated in the time-out.: Yes Procedure Operation Date: 09/30/20 07:00 Actual Procedures p Right Total Knee Arthroplasty(Right) - Colby Ryan MD Surgeon AUDIE Ryan MD Geodetic Engineer luc/brigido TORREZ Estimated Blood Loss 50 Findings Consistent with Post-Op Diagnosis Specimens see operative report Drains none Complications none Disposition Accompanied Patient To Recovery: Yes Disposition: Recovery Room Indications This 64-year-old female presented to the office with complaints of persisting right knee pain. She had tried conservative care measures without improvement. She elected to proceed with surgical intervention after being educated about potential risks and outcomes. Preoperative imaging was obtained. Description of Procedure Patient was given a spinal anesthetic and then taken to the operating room and given sedation. She was prepped and draped in the usual sterile fashion. Please see Dr. Ryan's operative report for specifics of the procedure. I was present for the entire case from initial patient positioning through final wound closure. Assistance was provided in tissue retraction, hemostasis, trial implant placement, final implant placement, and final wound closure. Patient was taken to the recovery room in satisfactory condition. I attest to the content of the Intraoperative Record and any orders documented therein. Any exceptions are noted below.
--- NOTE | 2020-09-30 08:49 | Operative Report ---
Post Operative Report Pre & Post Diagnosis Operation Date: 09/30/20 07:00 Pre-Op Diagnosis: Right Knee Degenerative Joint Disease Post-Op Diagnosis: Right Knee Degenerative Joint Disease I identified the patient and participated in the time-out.: Yes Procedure Operation Date: 09/30/20 07:00 Actual Procedures p Right Total Knee Arthroplasty(Right) - Colby Ryan MD Surgeon Colby Ryan MD Visual Journalist luc/brigido TORREZ Estimated Blood Loss 50 Findings Consistent with Post-Op Diagnosis Specimens bone cuts Anesthesia Type Spinal MAC Complications none Disposition Accompanied Patient To Recovery: Yes Disposition: Recovery Room Description of Procedure As per 's note I assisted in prepping and draping, instruments handling, certain parts of the procedure and wound closure. I attest to the content of the Intraoperative Record and any orders documented therein. Any exceptions are noted below.
--- NOTE | 2020-09-30 08:55 | Operative Report (OR) ---
DATE OF OPERATION: 09/30/2020 SURGEON: Colby Ryan MD. HOPPER ATTENDANT: Dr. Horton. SECOND HOPPER ATTENDANT: Jere Fisher PA-C. PREOPERATIVE DIAGNOSIS: Osteoarthritis, right knee. POSTOPERATIVE DIAGNOSIS: Osteoarthritis, right knee. OPERATION PERFORMED: Cemented right total knee replacement. SUMMARY OF IMPLANTS: Size 2.5 right femur, size 2.5 mobile bearing tray tibia, size 2.5 x 10 mm insert posterior cruciate substituting, size 38 patella, 2 bags of Palacos G cement. Bone pathology pending. DVT prophylaxis per protocol. PERIOPERATIVE SITUATION: Medically cleared female with intractable bilateral knee pain, has had hip replacement on the right, now wants to proceed with right knee replacement. She understands the risks and consequences. This was described in detail multiple times. DESCRIPTION OF PROCEDURE: The patient was appropriately identified, site verified, consent verified. Antibiotics confirmed as being given. The right lower extremity was prepped and draped in usual routine fashion. She had a conical leg. Anterior exposure made. Sharp dissection through skin and blunt dissection to the fascia. Parapatellar arthrotomy performed. Synovectomy completed, extensor mechanism had some entrapment. This was released. The patella could then be everted. Femur was flexed, menisci resected. Distal femur entered. Cruciates resected. Distal femur resected 12 mm, proximal tibia 4 mm, the extension gap was excellent. Femur was sized between a 2.5, it was measured 3 cut 2.5. There was no anterior notching. The capsule medially was tied, it was released. This allowed good flexion gap checking. Posterior capsule was then injected. The femur was then placed into position. After the anterior and posterior condylar chamfer cuts made and the box cut made and size 2 required a little bit of revision of the box to get to sit appropriately and once that was done, it sat excellently. Tibia was then broached and reamed to 2.5 and 10 mm spacer placed. The knee tracked well. The knee was stable in full extension and mid range flexion. Patella was resected leaving 15 mm then the 38 button template seated and fit well. The seating hole was made and the trial tracked well. The Orthomix was then injected all around the anterior aspect of the knee. All implants then removed. The wound irrigated with Betadine Pulsavac and then cemented in position, tibia, femur and patella in that order. After 12 minutes the tourniquet deflated. After 14 minutes, the knee flexed. Minor cement removal required. Knee irrigated. No major issues seen with the implant. Everything looked fixed well and appropriately positioned. The patella tracked well. The knee was then closed at 40 degrees of flexion with #2 Vicryl, 2-0 Vicryl and stainless steel clips. Appropriate dressing applied. The patient transferred to recovery room in satisfactory condition having tolerated the procedure well. ESTIMATED BLOOD LOSS: Roughly 50 mL PATHOLOGY: Pending on bone. CRYSTALLOID: Per anesthesia. DVT prophylaxis per protocol. I attest to the content of the Intraoperative Record and any orders documented therein. Any exception s are noted below.
--- NOTE | 2020-09-30 09:06 | XRay Report ---
RIGHT KNEE 2 VIEWS History: Right total knee arthroplasty. Degenerative arthritis. Postop. FINDINGS: The patient is status post a right total knee arthroplasty. The hardware is intact. No frac ture or dislocation. Skin yamileth are in place. IMPRESSION: Right total knee arthroplasty. No evidence for hardware complication. ACT 112: Negative or not required by law. Electronically signed by: Yang Loza M.D. 09/30/2020 9:04 AM
[2020-09-30] MEDS ORDERED: VANCOMYCIN HCL 1,750 MG in SODIUM CHLORIDE 0.9% 500 ML IV SCH (09:15)
[2020-09-30] MEDS ORDERED: bisacodyL 10 MG SUPP PR PRN (10:01)
[2020-09-30] MEDS ORDERED: MAGNESIUM HYDROXIDE SUSP 30 ML UDC PO PRN (10:01)
[2020-09-30] MEDS ORDERED: SODIUM CHLORIDE 0.9% 1000ML 1,000 ML IV SCH (10:01)
[2020-09-30] MEDS ORDERED: ALBUTEROL HFA 8 GM INHALER INH PRN (10:01)
[2020-09-30] MEDS ORDERED: diphenhydrAMINE 50 MG/ML VIAL IV PRN (10:01)
[2020-09-30] MEDS ORDERED: NALOXONE HCL 0.4 MG/1 ML VIAL/CARP IV PRN (10:01)
[2020-09-30] MEDS ORDERED: METOCLOPRAMIDE HCL INJ 5 MG/ML 2 ML VIAL IV PRN (10:01)
[2020-09-30] MEDS ORDERED: ONDANSETRON INJ 2 MG/ML 2 ML VIAL IV PRN (10:01)
[2020-09-30] MEDS ORDERED: HYDROmorphone INJ 0.5 MG/0.5 ML SYR IV PRN (10:01)
[2020-09-30] MEDS ORDERED: ALUMINUM/MAGNESIUM SUSP 30 ML UDC PO PRN (10:01)
[2020-09-30] MEDS: KETOROLAC TROMETHAMINE 15 MG/ML VIAL IV SCH ×3 (11:14→22:19)
[2020-09-30] MEDS: DOCUSATE SODIUM 100 MG CAP PO SCH ×2 (11:15→20:12)
[2020-09-30] MEDS: PANTOprazole 40 MG TAB PO SCH ×2 (11:15→20:12)
[2020-09-30] MEDS: MULTIVITAMIN TAB PO SCH (11:15)
[2020-09-30] MEDS: ASPIRIN 81 MG ECTAB PO SCH (11:15)
[2020-09-30] MEDS: oxyCODONE HCL IR 5 MG TAB (IMMEDIATE RELEASE) PO PRN ×4 (11:16→23:56)
--- NOTE | 2020-09-30 11:18 | Progress Notes ---
DATE: 09/30/2020 SUBJECTIVE: Postop right total knee replacement. The patient is sleeping comfortably. I woke her up by tapping her foot. She denies any right knee pain. She states her back hurts, which is her usual. She denies any numbness or tingling. She denies chest pain, shortness of breath, fever, chills, nausea, vomiting, or headache. OBJECTIVE: Vital signs are stable. She is afebrile. Neurovascular check of femoral sciatic nerve is normal. Wound dressing is clean, dry and intact. Postoperative x-rays look excellent. ASSESSMENT: Doing well. PLAN: Continue care pathway. Hep lock/saline lock IV when she eats lunch. Continue to use for meds only. Discharge tomorrow.
--- NOTE | 2020-09-30 11:34 | Discharge Summary (DS) ---
CHIEF COMPLAINT: Right knee pain. HISTORY OF PRESENT ILLNESS: The patient underwent elective right total knee replacement. Hospital course to the present time has been uneventful. She continues on care plan.. She will be discharged tomorrow. Postop x-rays look excellent. She denies chest pain, shortness of breath, fever, chills, nausea, vomiting or headache. PAST MEDICAL HISTORY: Remarkable for anxiety, back pain, COPD, GERD, heart palpitations, hypertension, coronary artery disease, home O2 use, obstructive sleep apnea, rheumatoid arthritis. PAST SURGICAL HISTORY: Includes cholecystectomy, colonoscopies, EGDs, right hip replacement, cardiac cath. REVIEW OF SYSTEMS: Noncontributory as noted above. SOCIAL HISTORY: Reveals that she smokes, secondhand exposure is positive. No chewing tobacco. Social alcohol. ASSESSMENT: Status post right total knee replacement, doing well. Discharge to home. Case management already had been seeing the patient. Discharge tomorrow if she does well. SHUBHAM
--- NOTE | 2020-09-30 11:42 | Anesthesiology Progress Note ---
Date of Service September 30, 2020 Anesthesia Post Procedure Vital Signs Vital Signs: Temp Pulse Pulse Pulse Resp BP Pulse Ox 09/30/20 10:40 36.3 C L 73 18 125/85 98 09/30/20 10:10 36.3 C L 66 18 155/79 H 96 09/30/20 09:40 36.5 C 72 16 134/82 96 09/30/20 09:25 70 17 140/76 94 09/30/20 09:10 36.8 C 70 19 143/76 H 95 09/30/20 09:00 71 18 149/80 H 96 09/30/20 08:50 67 15 150/79 H 97 09/30/20 08:43 36.8 C 78 16 125/78 98 09/30/20 05:42 36.5 C 72 18 164/88 H 96 Transfer of Care Handoff Completed per policy Notes Mental Status: alert / awake / arousable and participated in evaluation Patient Amnestic to Procedure: Yes Nausea / Vomiting: adequately controlled Pain: adequately controlled Airway Patency, RR, SpO2: stable & adequate BP & HR: stable & adequate Hydration State: stable & adequate Neuraxial Anesthesia: was administered and sensory block is resolving Anesthetic Complications: no major complications apparent
[2020-09-30] MEDS ORDERED: ORTHO WARFARIN NOMOGRAM SCH (14:00)
[2020-09-30] MEDS: ACETAMINOPHEN 500 MG TAB PO SCH ×2 (14:23→22:19)
[2020-09-30] MEDS: ceFAZolin 2000MG 2,000 MG/15 ML SYR IV SCH ×2 (14:23→22:19)
[2020-09-30] MEDS ORDERED: TRANEXAMIC ACID / 0.7% NACL 1,000 MG/100 ML BAG IV SCH (15:00)
[2020-09-30] MEDS ORDERED: WARFARIN SOD 5 MG TAB PO ONE (16:00)
[2020-09-30] MEDS: FERROUS GLUCONATE 324 MG TAB PO SCH (17:15)
[2020-09-30] MEDS: ASCORBIC ACID 500 MG TAB PO SCH (17:16)
[2020-09-30] MEDS ORDERED: NITROGLYCERIN 0.2 MG/HR PATCH TD SCH (17:30)
[2020-09-30] MEDS: POTASSIUM CHLORIDE 10 MEQ TABCR PO SCH (20:13)
[2020-09-30] MEDS ORDERED: MAGNESIUM OXIDE 400 MG TAB PO SCH (21:00)
[2020-09-30] MEDS ORDERED: amLODIPine BESYLATE 5 MG TAB PO SCH (21:00)
[2020-09-30] MEDS ORDERED: SENNA 8.6 MG TAB PO SCH (21:00)
[2020-10-01] MEDS: oxyCODONE HCL IR 5 MG TAB (IMMEDIATE RELEASE) PO PRN ×2 (04:18→08:34)
[2020-10-01] MEDS: ACETAMINOPHEN 500 MG TAB PO SCH (05:48)
[2020-10-01] MEDS: KETOROLAC TROMETHAMINE 15 MG/ML VIAL IV SCH (05:49)
[2020-10-01 06:21] LABS: Hemoglobin 11.3 g/dL (12.0-16.0); Mean Corpuscular Hemoglobin 28.8 pg (25-34); Mean Corpuscular Hgb Conc 33.2 g/dL (32-36); Mean Corpuscular Volume 86.7 fL (80-100); Mean Platelet Volume 10.7 fL (7.4-10.4); Platelet Count 245 K/uL (130-400); RDW Coefficient of Variation 15.5 % (11.5-14.5); RDW Standard Deviation 49.3 fL (36.4-46.3); Red Blood Count 3.92 M/uL (4.2-5.4); White Blood Count 9.96 K/uL (4.8-10.8)
[2020-10-01 06:47] LABS: Prothrombin Time 10.3 Seconds (9.0-12.0)
[2020-10-01 06:54] LABS: BUN Creatinine Ratio 28.9 (10-20); Calcium 8.5 mg/dl (8.5-10.1); Creatinine Clr Calc Pharmacy 103.4 ml/min; Est GFR (African American) 106.7; Est GFR (Non-African American) 92.1; Potassium 3.7 mmol/L (3.5-5.1)
--- NOTE | 2020-10-01 07:43 | Progress Notes ---
DATE: 10/01/2020 SUBJECTIVE: Postop day #1 status post right total knee replacement. The patient is doing well, sitting up in her chair. She actually can still do straight leg raise. She denies chest pain, shortness of breath, fever, chills, nausea, vomiting, or headache. She has the usual back pain. OBJECTIVE: Neurovascular check, femoral sciatic nerve is normal. Calves nontender. Dressing has some mild drainage. LABORATORY DATA: Hematocrit is stable at 34. INR is 1.0. ASSESSMENT AND PLAN: Doing well. Discharged to home today. Discharged on 4 mg. Dressing changed. Please leave dressing change on until Monday and then nursing she can do it at home after that. Have her check up in a week just for wound check based on the size of her leg.
[2020-10-01] MEDS ORDERED: dexAMETHasone 10 MG in SYRINGE 0 ML IV SCH (08:00)
[2020-10-01] MEDS: MULTIVITAMIN TAB PO SCH (08:35)
[2020-10-01] MEDS: DOCUSATE SODIUM 100 MG CAP PO SCH (08:35)
[2020-10-01] MEDS: PANTOprazole 40 MG TAB PO SCH (08:35)
[2020-10-01] MEDS: ASPIRIN 81 MG ECTAB PO SCH (08:35)
[2020-10-01] MEDS: ASCORBIC ACID 500 MG TAB PO SCH (08:36)
[2020-10-01] MEDS: POTASSIUM CHLORIDE 10 MEQ TABCR PO SCH (08:36)
[2020-10-01] MEDS: FERROUS GLUCONATE 324 MG TAB PO SCH (08:36)
--- NOTE | 2020-10-01 10:02 | Orthopedic Progress Note ---
Date of Service October 01, 2020 Assessment & Plan (1) Status post total right knee replacement using cement: Patient was seen in her room. Dressings were changed by me. New pressure dressing was applied. She has no active bleeding. Patient will be discharged to home today with home health services. She received PT/OT prior to departure. Prescriptions for Percocet and Coumadin have been sent to her pharmacy. Written discharge instructions have been provided. Continue ambulating with her walker. Follow-up in the office in 2 weeks as scheduled for staple removal. Call the office with any other concerns. Admission and Anticipated Discharge Date Admission Date: September 30, 2020 Subjective Patient is seen in her room this morning. She is sitting in a chair. States she did not sleep well last night. She does have some knee pain. She is also complaining of her back. Denies any chest pain, shortness of breath, nausea, or vomiting. No abdominal pain. She has been out of bed already. She feels ready to go home. Denies any numbness or tingling. No other complaints. Review of Systems Review of Systems: Unchanged from yesterday. Physical Exam Physical Exam: General: Well-developed, well-nourished, obese elderly white female, in no acute distress. Laying on the bed. Alert and oriented. Conversive. Skin: Warm and dry with good turgor. No rashes. Patient does have a fairly large amount of dried blood present on her dressings. It appears they were reinforced overnight with extra gauze and an ABD. Upon removal, she has no active bleeding. Moderately effused at the right knee. No current ecchymosis. Jennifer are intact. Wound edges are well approximated. Musculoskeletal: Patient has intact motor function of her ankle and toes. She has full terminal extension of her right knee. She complains of discomfort in the flexion crease of the knee. She is able to perform a straight leg raise. Active flexion today is about 40 degrees. Neurologic: Gross sensation is intact across the right leg by soft touch. Peripheral pulses are 2+. Results & Data ([facility]) Vital Signs (Past 12 Hours) Vital Signs Temp Pulse Resp BP Pulse Ox 10/01/20 07:00 37.0 C 79 18 124/83 95 10/01/20 03:10 36.4 C L 80 18 110/70 94 09/30/20 22:50 36.6 C 70 18 125/81 94 Laboratory Results H&H obtained today is 11.3 and 34.0. INR is 1.0. PRP is unremarkable.
[2020-10-01] MEDS ORDERED: WARFARIN SOD 5 MG TAB PO ONE (10:30)
== END 2020-10-01 12:23 | disposition home health service (06) ==
LOC: 3E 05:04 → PAT 05:04

== ENCOUNTER 2023-11-15 06:55 | Observation (INO) ==
--- NOTE | 2023-10-24 16:10 | PAT Medication Instructions ---
Medication Instructions Date of Service October 24, 2023 Home Medications albuterol sulfate 90 mcg/actuation aerosol inhaler 2 inh inhalation QID PRN Wheezing amlodipine 2.5 mg tablet 5 mg PO QPM cholecalciferol (vitamin D3) 25 mcg (1,000 unit) tablet (Vitamin D3) 2,000 unit PO QPM magnesium oxide 400 mg PO QPM nitroglycerin 0.2 mg/hr transdermal 24 hour patch (Nitro-Dur) 1 patch transdermal DAILY omeprazole 20 mg capsule,delayed release 20 mg PO BID potassium chloride 8 mEq capsule,extended release 16 meq PO TID aspirin 81 mg tablet,delayed release 81 mg PO QAM hydrocodone 10 mg-acetaminophen 325 mg tablet 1 tab PO UD PRN Pain omega-3 fatty acids 1,000 mg PO DAILY Continue as directed nitroglycerin 0.2 mg/hr transdermal 24 hour patch (Nitro-Dur) 1 patch transdermal DAILY ASK your prescriber and surgeon aspirin 81 mg tablet,delayed release 81 mg PO QAM STOP taking 2 weeks before surgery (or as soon as possible if surgery is within 2 weeks) omega-3 fatty acids 1,000 mg PO DAILY DO NOT take the morning of surgery potassium chloride 8 mEq capsule,extended release 16 meq PO TID Take morning of surgery With a small sip of water, OTHERWISE NOTHING TO EAT OR DRINK AFTER MIDNIGHT: albuterol sulfate 90 mcg/actuation aerosol inhaler 2 inh inhalation QID PRN Wheezing (use if needed; please bring rescue inhaler with you to hospital day of surgery if possible) omeprazole 20 mg capsule,delayed release 20 mg PO BID hydrocodone 10 mg-acetaminophen 325 mg tablet 1 tab PO UD PRN Pain (if needed) Take evening before surgery albuterol sulfate 90 mcg/actuation aerosol inhaler 2 inh inhalation QID PRN Wheezing (if needed) amlodipine 2.5 mg tablet 5 mg PO QPM cholecalciferol (vitamin D3) 25 mcg (1,000 unit) tablet (Vitamin D3) 2,000 unit PO QPM magnesium oxide 400 mg PO QPM omeprazole 20 mg capsule,delayed release 20 mg PO BID potassium chloride 8 mEq capsule,extended release 16 meq PO TID hydrocodone 10 mg-acetaminophen 325 mg tablet 1 tab PO UD PRN Pain (if needed) Other Notes If you have any questions please call us at [phone] or [phone] or [phone] or [phone]
--- NOTE | 2023-10-30 11:51 | Anesthesiology Consultation ---
Date of Service October 30, 2023 Assessment & Plan (1) Encounter for pre-operative examination: Plan - awaiting final cardiology clearance. - will request chest CT from PCP Dr. Hilaria Rahman. - cardiology clearance 10/16/23 PSH: "...knee surgery...2 falls in the last year...the first 1 was the summer and was mechanical...second 1 was in the fall and sounds vasovagal...hypokalemic...no further lightheadedness or presyncope or syncope...continues to have dyspnea on exertion...sweats out of the blue at times...CT chest ordered by her PCP which was negative...ordered due to coughing with blood-streaked sputum...wearing a Nitropatch every day which she has done so for many years...previous angina felt like someone sitting on her chest...has not felt this sensation in many years...will have her proceed with a dobutamine stress test prior to surgery...resting echo. EKG in the office today demonstrated NSR..." - Outpatient joint assessment: Patient is currently scheduled for inpatient pathway. If re-evaluated and patient/surgeon requests outpatient pathway, patient is not candidate for outpatient joint program from anesthesia standpoint. Chart Review Chart Review: Pending: Refer to Additional Notes / Consult section and Patient seen in Pre Admission Testing Teaching & Discussion Pre-Anesthesia Teaching/Discussion Notes: Instructed NPO after midnight before surgery, except medications with 15 cc of water. Medication instructions provided according to the PAT guidelines. History Surgery Operation Date: 11/15/23 07:00 Proposed Procedures p Left Total Knee Arthroplasty - Colby Ryan MD Height/Weight Height: 5 ft 3 in Weight: 114.9 kg Allergies Allergy/AdvReac Type Severity Reaction Status Date / Time bandaid Allergy Unknown Rash Uncoded 10/17/23 13:21 Medications Home Medications Medication Instructions Recorded Confirmed Last Taken albuterol sulfate 90 mcg/actuation 2 inh inhalation QID PRN Wheezing 10/25/19 10/17/23 11/15/20 aerosol inhaler amlodipine 2.5 mg tablet 5 mg PO QPM 10/25/19 10/17/23 05/16/21 cholecalciferol (vitamin D3) 25 2,000 unit PO QPM 10/25/19 10/17/2321 mcg (1,000 unit) tablet (Vitamin D3) magnesium oxide 400 mg PO QPM 10/25/19 10/17/23 05/16/21 nitroglycerin 0.2 mg/hr 1 patch transdermal DAILY 10/25/19 10/17/23 11/15/20 18:00 transdermal 24 hour patch (Nitro-Dur) omeprazole 20 mg capsule,delayed 20 mg PO BID 10/25/19 10/17/23 05/16/21 release potassium chloride 8 mEq 16 meq PO TID 10/25/19 10/17/23 05/16/21 capsule,extended release aspirin 81 mg tablet,delayed 81 mg PO QAM 08/11/20 10/17/23 05/10/21 release hydrocodone 10 mg-acetaminophen 1 tab PO UD PRN Pain 10/06/20 10/17/23 05/17/21 325 mg tablet omega-3 fatty acids 1,000 mg PO DAILY 04/30/21 10/17/23 05/10/21 Past Medical History Medical History Chronic back pain Chronic obstructive pulmonary disease 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 Manzano Hypertension controlled, stable per pt Morbid obesity Non-occlusive coronary artery disease Presumed per cardio note (had cardiac cath 2003 and 2007) On home oxygen therapy 3L hs CARLOS (obstructive sleep apnea) Was not able to complete sleep study for device- uses only oxygen at night Restless leg syndrome Rheumatoid arthritis [facility] Right lumbar radiculopathy Patient denies h/o stroke, seizures, heart attack, heart failure, DM, blood clots/DVTs or blood transfusions. Exercise / Class Metabolic Activity III < 4 Walking/Shop/Light housework (denies chest discomfort or shortness of breath with usual activities) Past Family History Family History Father Family history of diabetes mellitus Past Surgical History Surgical History History of cardiac cath (~2007) X 2, 2007 - NO HX STENTS PT REPORTS HX ANGIOPLASTY 2003 Both at [facility], currently follows with Dr. Manzano History of cataract surgery B/L History of cholecystectomy History of colonoscopy History of esophagogastroduodenoscopy (EGD) History of selective injection of anesthetic agent around lumbar nerve root (~05/2021) LESI History of total hip arthroplasty rt Status post total right knee replacement (~09/30/20) Past Anesthesia History No Hx of Anesthesia Complications and No Family Hx of Anesthesia Complications History of PONV No Hx of PONV and No Hx of Motion Sickness Social History Smoking Status: Current every day smoker (-advised) tobacco type: e-cigarettes Smoking cigarettes per day: previous 4 PPD, currently vapes 1 cartridge x 2 days Do You Dip or Chew Tobacco: No Hx Alcohol Use: No Hx Substance Use: No substance use type: does not use Review of Systems Nasal congestion and occasional cough-nonproductive several days ago-since resolved. Patient denies chest pain, shortness of breath, dyspnea on exertion, fever, chills, wheezing, or palpitations. Physical Exam Vital Signs Vitals BP 133/82 P 62 TEMP 97.6 SP02 94% on RA RESP 18 Physical Patient resting comfortably in chair in no acute distress, alert and oriented, responding appropriately throughout visit Full cervical extension range of motion without pain TMD 3.5 finger breadths Mallampati Score 3 Dentition: edentulous, full upper and lower dentures Lungs: normal respiratory effort. Good air movement, clear throughout to auscultation, no adventitious breath sounds Cardiac: regular rate and rhythm, no murmurs noted Carotid arteries: negative bruit bilat Lab Results Anesthesia Preop Results Results Anesthesia Widget: WBC 5.20 K/ul (4.8-10.8) 10/30/23 Hgb 12.8 g/dl (12.0-16.0) 10/30/23 Hct 38.9 % (37.0-47.0) 10/30/23 Plt 261 K/uL (130-400) 10/30/23 Na 140 mmol/L (136-145) 10/30/23 K 4.5 mmol/L (3.5-5.1) 10/30/23 Cl 103 mmol/L (98-107) 10/30/23 CO2 33 mmol/L (21-32) H 10/30/23 BUN 19 mg/dl (6-23) 10/30/23 Creat 0.67 mg/dl (0.6-1.2) 10/30/23 Glucose Level 81 mg/dl (70-99(Fasting)) 10/30/23 PT 10.0 Seconds (9.0-12.0) 10/30/23 PTT 29 Seconds (21-31) 10/30/23 INR 0.9 (0.9-1.1) 10/30/23 Urine Color Yellow 10/30/23 Urine Appearance Clear (Clear) 10/30/23 Urine pH 8.0 (4.5-7.5) H 10/30/23 Urine Specific Mayer 1.009 (1.000-1.030) 10/30/23 Urine Protein Negative (Negative) 10/30/23 Urine Glucose (UA) Negative (Negative) 10/30/23 Urine Ketones Negative (Negative) 10/30/23 Urine Blood Negative (Negative) 10/30/23 Urine Nitrite Negative (Negative) 10/30/23 Urine Bilirubin Negative (Negative) 10/30/23 Urine Urobilinogen Negative (Negative) 10/30/23 Urine Leukocyte Esterase Negative (Negative) 10/30/23 Blood Type O Positive 10/30/23 Antibody Screen NEGATIVE 10/30/23 Testing Electrocardiogram Date: 10/16/23 NSR, rate 62 bp Chest X-Ray Date: 10/30/23 Cardiomegaly with no active disease in the chest. Echocardiogram Date: 10/25/23 EF 65% No LV regional wall motion abnormalities Mild LVH Grade I diastolic dysfunction Mild mitral regurgitation Significant lipomatous hypertrophy of atrial septum Stress Test Date: 10/25/23 MPHR 89% Negative dobutamine stress echo EF 65% No LV regional wall motion abnormalities Cervical Spine Date: 03/21/23 Degenerative changes without evidence of acute bony injury.
--- NOTE | 2023-11-15 06:52 | History & Physical Bridge Note ---
Date of Service November 15, 2023 History & Physical Bridge Note I have examined the patient, reviewed the History & Physical and in the interval since the performance of the History & Physical I have noted the following changes of clinical significance: no changes noted
[~2023-11-15 06:55] MED LIST changes: -CEFAZOLIN 3000MG 72.5 ML IV SCH; -LR 15ML/HR IV SCH; -LR 60ML/HR IV SCH; +ROPIVACAINE 0.5% 5 MG/ML 30 ML VIAL ONE; -ROPIVACAINE 0.5% HCL/PF 150 MG, BUPIVACAINE 0.5% MPF 30 ML, EPINEPHrine 0.15 MG, Ketoro... INFIL SCH; -TRANEXAMIC ACID 1,000 MG **IV Pre-op IV SCH
[2023-11-15] MEDS ORDERED: MIDAZOLAM HCL 1 MG/ML 2ML VIAL ONE (07:20)
[2023-11-15] MEDS: LR 500ML BOLUS, THEN 15ML/HR IV SCH (07:46)
[2023-11-15] MEDS ORDERED: ONDANSETRON INJ 2 MG/ML 2 ML VIAL IV PRN ×2 (08:26→12:26)
[2023-11-15] MEDS ORDERED: ATROPINE SULFATE 0.1 MG/ML 10ML SYR IV PRN (08:26)
[2023-11-15] MEDS ORDERED: ePHEDrine sulfate 50 MG/ML AMP IV PRN (08:26)
[2023-11-15] MEDS: LR 60ML/HR IV SCH (08:58)
[2023-11-15] MEDS: TRANEXAMIC ACID 1,000 MG **IV Pre-op IV SCH (08:58)
[2023-11-15] MEDS: ceFAZolin 2000MG 2,000 MG/15 ML SYR IV SCH ×2 (09:11→16:24)
[2023-11-15] MEDS: ceFAZolin 1000MG 1,000 MG/7.5 ML SYR IV ONE (09:30)
[2023-11-15] MEDS ORDERED: ceFAZolin 330 MG/ML 1 GM VIAL ONE (09:31)
[2023-11-15] MEDS ORDERED: SODIUM CHLORIDE 0.9% PF INJ 10 ML VIAL ONE (09:31)
[2023-11-15] MEDS ORDERED: PROPOFOL IV EMULSION 10 MG/ML 20 ML VIAL IV ONE ×3 (09:32→10:37)
[2023-11-15] MEDS ORDERED: ONDANSETRON INJ 2 MG/ML 2 ML VIAL ONE (09:34)
[2023-11-15] MEDS ORDERED: GLYCOPYRROLATE 0.2 MG/ML VIAL ONE (09:34)
[2023-11-15] MEDS: ROPIVACAINE 0.5% HCL/PF 246 MG, Ketorolac (*for OR use only*) 30 MG, EPINEPHrine 30MG/3... INFIL SCH ×2 (09:51→10:42)
[2023-11-15] MEDS: TRANEXAMIC ACID 1,000 MG **IV Intra-op IV SCH (10:20)
--- NOTE | 2023-11-15 10:53 | Post Operative Brief Note ---
Immediate Post Op Note v1 Date of Surgery November 15, 2023 Pre & Post Diagnosis Operation Date: 11/15/23 08:50 Pre-Op Diagnosis: Left Knee End-Stage Degenerative Joint Disease Post-Op Diagnosis: Left Knee End-Stage Degenerative Joint Disease I identified the patient and participated in the time-out.: Yes Procedure Operation Date: 11/15/23 08:50 Actual Procedures p Left Total Knee Arthroplasty(Left) - Colby Ryan MD Surgeon Colby Ryan MD Shipfitter Apprentice ROYA/Natalia Estimated Blood Loss 50 Findings Consistent with Post-Op Diagnosis Severe osteoarthritis varus deformity Fluids See anesthesia report Complications None
--- NOTE | 2023-11-15 10:56 | Operative Report ---
Post Operative Report Pre & Post Diagnosis Operation Date: 11/15/23 08:50 Pre-Op Diagnosis: Left Knee End-Stage Degenerative Joint Disease Post-Op Diagnosis: Left Knee End-Stage Degenerative Joint Disease I identified the patient and participated in the time-out.: Yes Procedure Operation Date: 11/15/23 08:50 Actual Procedures p Left Total Knee Arthroplasty(Left) - Colby Ryan MD Surgeon Colby Ryan MD Optician ROYA/Natalia Estimated Blood Loss 50 Findings Consistent with Post-Op Diagnosis Severe osteoarthritis medial and patellofemoral compartments varus alignment Fluids See anesthesia report Specimens Bone pathology Drains None Complications None Indications Severe pain progressive x-rays failed conservative management left knee Description of Procedure After the patient was appropriate notified site verified consent verified antibiotics confirmed to be given the left lower extremity was prepped and draped use routine fashion. She had varus deformity with a slight flexion contracture. She was then prepped and draped use routine fashion tourniquet plated to 275 mmHg after exsanguination limb with a rubber band for total of 53 minutes. Midline exposure was utilized parapatellar throughout any performed synovectomy completed osteophytes resected distal femur entered cruciates resected tibia subluxated menisci resected. Distal femur then resected 11 mm proximal tibia 4 mm the extension gap was excellent. Femur was sized to a 5 the tibia to a 4. Appropriate cutting block applied to the femur and the anterior posterior, chamfer cuts then made. The flexion gap checked and was excellent. Box cut was then made. A size 5 fit well. Lug hole drills were made. Tibia is then broached and reamed to a size 4 and appropriate spacer placed in the 7 mm thick gave us excellent extension flexion stability and excellent tracking of the patella. The patella was quite thin and was resected leaving roughly 13 mm removing only about 7. 38 button fit well seating holes made and tracked well. Ortho mix was then then injected all about the knee all trial implants removed wound was then irrigated and then permanent cemented into position tibia femur and patella in that order a 12 minutes of tourniquet deflated at minor bleeding points controlled electrocautery at 14 minutes knee was inspected no cement move required the knee was irrigated with Betadine Pulsavac and then the permanent liner seated in the knee reduced and closed at 40 degrees of flexion with #2 Bhaskar ryl 2-0 Vicryl and standstill clips Rodrigo Sneed cotton dressing was then applied as well. Patient was then transferred recovery in satisfactory He tolerated the procedure well. EBL was 50 cc or less crystalloid per anesthesia pathology pending on bone. DVT prophylaxis per protocol. Summary of implants size 5 narrow left size 4 rotating platform tray size 38 patella size 5 x 7 rotating platform insert for the ATT UNE DePuy J&J total knee system. I attest to the content of the Intraoperative Record and any orders documented therein. Any exceptions are noted below.
--- OUTSIDE RECORDS SUMMARY | 2023-11-15 10:57 | External Medical Summary | Continuity of Care Document ---
Author Name Unknown Organization [id number] Address [address] [place] [id number] Care Team Providers Care Medical Doctor Name Role Phone Hilaria Rahman Reji Primary Care Physician [phone] [id number] Date(s): 10/30/23 - 10/30/23 [facility] [place] [id number] [address] [place], [place] [id number] Encounter Diagnosis Degenerative arthritis of knee, bilateral(Discharge Diagnosis) - 10/30/23 Discharge Disposition: Home or Self Care Attending Physician: MD Shelby, Colby Howard Referring Physician: SHAN Fisher, Jere Jansen Allergies, Adverse Reactions, Alerts No Known Allergies Medications acetaminophen-HYDROcodone 325 mg-10 mg oral tablet TAKE 1 TABLET BY MOUTH EVERY 4 HOURS NEEDED FOR PAIN Start Date: 03/08/19 Status: Ordered albuterol CFC free 90 mcg/inh MDI Start: 10/11/19 15:42:00 EST, 2 puff, inhaled, qid, PRN: as needed for wheezing Start Date: 10/11/19 Status: Ordered amLODIPine 2.5 mg oral tablet TAKE 2 TABLET BY MOUTH DAILY Start Date: 03/08/19 Status: Ordered aspirin 81 mg oral delayed release tablet Start: 04/15/20 15:43:00 EDT, See Instructions, Disp# 60 tab, Refills: 3, only takes on occasion, other Start Date: 04/15/20 Status: Ordered DULoxetine 30 mg oral delayed release capsule TAKE 1 CAPSULE BY MOUTH EVERY DAY IN THE MORNING Start Date: 03/14/22 Status: Ordered Fish Oil oral capsule Start: 03/08/19 15:07:00 EDT Start Date: 03/08/19 Status: Ordered magnesium oxide 400 mg (241.3 mg elemental magnesium) oral tablet Start: 10/11/19 15:58:00 EST, 1 tab, PO, Daily Start Date: 10/11/19 Status: Ordered multivitamin Start: 10/16/23 14:24:00 EST, 1 tab, PO, Daily Start Date: 10/16/23 Status: Ordered nitroglycerin 0.2 mg/hr transdermal film, extended release APPLY 1 PATCH TRANSDERMALLY DAILY REMOVE AFTER 18 HOURS Start Date: 03/08/19 Status: Ordered omeprazole 20 mg oral delayed release capsule TAKE 1-2 CAPSULES BY MOUTH EVERY DAY Start Date: 03/08/19 Status: Ordered potassium chloride 8 mEq (600 mg) oral tablet, extended release Start: 10/11/19 15:45:00 EST, 1 tab, PO, tid Start Date: 10/11/19 Status: Ordered unknown medication Start: 10/11/19 15:44:00 EST, home o2 at night Start Date: 10/11/19 Status: Ordered Vitamin C 1000 mg oral tablet Start: 10/11/19 15:44:00 EST, 1 tab, PO, Daily Start Date: 10/11/19 Status: Ordered Vitamin D3 Start: 03/08/19 15:07:00 EDT Start Date: 03/08/19 Status: Ordered Mental Status 10/30/23 Barriers to Learning one year None evide nt Mandatory Health Literacy Documentation Yes Health Literacy Communication Barriers N ever Primary Language Occitan Problem List Condition Confirmation Course Effective Dates Status H ealth Status Informant Presence of right artificial knee joint Confirmed Active Degenerative arthritis of knee, bilateral Confirmed Active COPD without exacerbation Confirmed Active Congestive heart disease Confirmed Active CAD in [place] artery Confirmed Active Post-COVID syndrome Confirmed Active Heart disease Confirmed Active S/P total hip arthroplasty Confirmed Active HTN (hypertension) Confirmed Active Obesity Confirmed Active Osteoarthritis of right hip Confirmed Active Right sacral radiculopathy Confirmed Active Sleep apnea Confirmed Active Tobacco abuse Confirmed Active Diagnosis Diagnosis Type Effective Dates Health Status Clinical Service Informant Degenerative arthritis of knee, bilateral Discharge Diagnosis 10/30/23 Procedures Procedure Date Related Diagnosis Body Site Status Angioplasty Completed Hip replacement 1 Complet ed 1Right Vital Signs Most recent to oldest [Reference Range]: 1 Height 160 cm (10/30/23 10:40 AM) Patient Weight 113 kg (10/30/23 10:40 AM) Body Mass Index 44.14 kg/m2 (3/18/24 10:40 AM) Temperature [36.5-37.9 DegC] 36.1 DegC *LOW* (10/30/23 10:40 AM) Heart Rate 74 bpm (10/30/23 10:40 AM) Blood Pressure 162/92mmHg (10/30/23 10:40 AM) Cuff Pulse Pressure 70 mmHg (10/30/23 10:40 AM) Social History Social History Type Response Smoking Status Never smoked [place] Sex Female Pre-OP H & P * SHAN Fisher Cory D: PERFORM, MODIFY, MODIFY, MODIFY Event Display: Pre-OP H & P Authored Date: [id number] PRE-OPERATIVE HISTORY AND PHYSICAL Name: NANI VALENZUELA Patient Number: [id number] : 1955 Date of Service: 10/30/2023 PRE-OP Diagnosis: Left knee end-stage DJD Planned Procedure: Left knee total knee arthroplasty Chief Complaint: Left knee pain History of Present Illness (including history relevant to procedure): This 68-year-old female presents today with her daughter, for her preoperative history and physical. She is scheduled to undergo a left knee total knee arthroplasty on 11/15/2023. She has a longstanding history of left knee pain. She previously underwent a right total knee arthroplasty and has done well with it. She elects to proceed with the same on the left. Preoperative imaging has been obtained. She denies any numbness or tingling. The pain is affecting her ADLs. It is worse with weightbearing and ambulation. Review Of Systems: A total of 10 systems were reviewed and are significant only for below stated conditions. Family history: Noncontributory Social history: The patient is . Retired. 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 No ETOH use. Tobacco use of half pack a day for the last 54 years. Past Medical History: Problems: Post-COVID syndrome Degenerative arthritis of knee, bilateral Right sacral radiculopathy Presence of right artificial knee joint CAD in [place] artery Obesity Tobacco abuse COPD without exacerbation Congestive heart disease Sleep apnea use of CPAP Osteoarthritis of right hip Heart disease cardiomegaly HTN (hypertension) GERD Procedure History Procedure Procedure Date Comments Angioplasty 2003,2007 [place] Hip replacement Total knee arthroplasty 01/2020 - Right Right Allergies and Sensitivities: NKA Current Home Meds: (Last Updated 10/29 10:39) DULoxetine (DULoxetine 30 mg oral delayed release capsule) TAKE 1 CAPSULE BY MOUTH EVERY DAY IN THEMORNING acetaminophen-HYDROcodone (acetaminophen-HYDROcodone 325 mg-10 mg oral tablet) TAKE 1 TABLET BY MOUTH EVERY 4 HOURS NEEDED FOR PAIN albuterol (albuterol CFC free 90 mcg/inh MDI) 2 puff inhaled qid PRN: as needed for wheezing amLODIPine (amLODIPine 2.5 mg oral tablet) TAKE 2 TABLET BY MOUTH DAILY ascorbic acid (Vitamin C 1000 mg oral tablet) 1,000 mg PO Daily aspirin (aspirin 81 mg oral delayed release tablet) only takes on occasion cholecalciferol (Vitamin D3) magnesium oxide (magnesium oxide 400 mg (241.3 mg elemental magnesium) oral tablet) 400 mg PO Daily multivitamin 1 tab PO Daily nitroglycerin (nitroglycerin 0.2 mg/hr transdermal film, extended release) APPLY 1 PATCH TRANSDERMALLY DAILY REMOVE AFTER 18 HOURS omega-3 polyunsaturated fatty acids (Fish Oil oral capsule) omeprazole (omeprazole 20 mg oral delayed release capsule) TAKE 1-2 CAPSULES BY MOUTH EVERY DAY potassium chloride (potassium chloride 8 mEq (600 mg) oral tablet, extended release) 8 mEq PO tid unknown medication home o2 at night Vitals: Last Updated 10/30/23 10:40 Weights: Last Updated 10/30/23 10:40 Date Temp Pulse BP RR SpO2 FIO2 Date Wt(kg) Wt(lb) 10/29 10:40 36.1 74 162/92 94 10/29 10:40 113.0 249 10/29 10:40 113.0 249 24 Hr Tmax: 36.1 at 10/29 10:40 Initial Wt: 10/29 113.0 kg 249 lb Physical Exam: (relevant to the procedure, including heart and lung evaluation) General: Well-developed, well-nourished, obese middle-aged female, in no acute distress. Sitting nam chair. Alert and oriented. HEENT: Normocephalic. Atraumatic. Eyes PERRLA, EOMI. Nares patent bilaterally without nasal drainage. Oropharynx with moist oral mucosa. Neck: No JVD. Cardiac: RRR. No MGR. Peripheral pulses are 2+. Lungs: Clear to auscultation bilaterally. No crackles, rhonchi, or wheezing. Good air movement. Abdomen: Obese. Bowel sounds present x 4. Soft nontender. No organomegaly. No masses. Extremities: Left knee evaluation reveals no intra-articular effusion. She has full terminal extension. Flexion to around 100 degrees. Strength is 5/5 with fair quad tone. Conical thigh. Stable collateral ligaments. No palpable defect in the patellar tendon or quadriceps tendon. She has focal pain with palpation over the medial and lateral joint lines. Crepitus is palpable with motion. Ambulatingtoday with an antalgic gait. Neuro: Gross sensation is intact across the upper and lower extremities by soft touch. Skin: Warm and dry with good turgor. No rashes. No ecchymosis or erythema. No intra-articular effusion in the left knee. Studies of radiology results (relevant to the procedure): Radiographic imaging previously obtained of the left knee shows end-stage DJD with periarticular osteophytes, subchondral sclerosis, and lossof joint space. ASSESSMENT: Left knee end-stage DJD Plan: Approximately 30 minutes was spent with the patient and her daughter, reviewing operative procedure, postoperative recovery, physical therapy requirements, and medication use. Postoperative prescriptions for Percocet and Eliquis will be sent to her pharmacy at discharge from the hospital. Anticipate discharge to home with home health services for 2 weeks and then outpatient PT. She already has a walker and cane. She will attend [facility] today for her preoperative lab work. She already had her EKG done at the time of her stress echo. PDMP was checked and there are no concerning findings. She is currently asymptomatic of any COVID-19 symptoms. Postoperative follow-up appointment has been made for November 29 with [place] for staple removal. This dictation has been completed using [employer] text voice recognition software. Grammatical errors, omissions, insertions, and misspellings may be present due to the limitations of the software. Electronic Signature on File Electronically Reviewed/Signed by: Jere Fisher PA-C Author Signature Dt/Tm:11/01/2023 09:10 AM Division of Sports Medicine Electronically Reviewed/Signed by: Colby Ryan MD Cosigner Signature Dt/Tm: 11/01/2023 10:09 AM Button Facing Machine Operator for Clinical Affairs, [facility] Mila Professor in Orthopaedics Repair Coil Winder, [facility] CDS Ortho Outpt Note * Irma Hogan: PERFORM, MODIFY Event Display: Ortho Outpt Note Authored Date: [id number] Name:NANI VALENZUELA Patient Number:[id number] :1955 Date of Service:10/30/2023 CHIEF COMPLAINT: Left TKA surgical consent HPI: [id number] [email or web address] presents today forleft TKA surgical consent. Her left knee pain has progressed to where she is not able to manage her pain medically and sheis currently scheduled for 11/15/2023. She is also about 3 years s/p right TKA and has no complaints or concerns. PHYSICAL EXAM: Focus on bilateral lower extremities: Femoral and sciatic nerve function intact. Left knee ROM: 0 to 120 DIAGNOSTIC REVIEW: I obtained and personally interpreted 3 views of the left knee which shows a well-fixed, well-aligned total knee replacement on the right. On the left there is severe medial patellofemoral compartment arthritis with varus deformity. IMPRESSION: 68 year old female 1)Left knee OA 2) s/p right TKA PLAN: Reviewed risks, benefits, procedure, and rehabilitation for left TKA. Surgical consent obtained H&P completed after evaluation today Follow-up as scheduled for surgery on 11/15/2023 ATTESTATION: Irma Melchor, scribing for and in the presence of, Colby Ryan, on this date,10/30/2023 10:54:29. Electronic Signature on File Electronically Reviewed/Signed by: Irma Hogan Author Signature Dt/Tm:10/30/2023 11:05 AM Electronically Reviewed/Signed by: Colby Ryan MD Cosigner Signature Dt/Tm: 10/30/2023 11:44 AM Button Facing Machine Operator for Clinical Affairs, [facility] Mil[place] Professor in Orthopaedics Repair [employer], [facility] KR Patient Care team information Care Team Personnel Name: MD Rahman Carol G Position: Referring Member Role: Primary Care Provider Address: Address: [address] [place] [address] [place] Care Team Related Persons Name: ADE LIN Address: home [address] [place] [address] DR DIAZ, [phone]
--- NOTE | 2023-11-15 11:00 | Orthopedic Progress Note ---
Date of Service November 15, 2023 Orthopedic Progress Note Underwent left cemented total knee replacement tolerated well wound dressing clean dry and intact neurovascular check limited by spinal x-ray pending. Family notified.
--- NOTE | 2023-11-15 11:01 | Discharge Summary ---
Date of Service November 16, 2023 Admission HPI Per Admitting Provider Left knee pain underwent left total knee replacement Principal Diagnosis Severe osteoarthritis left knee Discharge Data Allergies Allergy/AdvReac Type Severity Reaction Status Date / Time bandaid Allergy Unknown Rash Uncoded 11/15/23 07:17 Vaccinations None Consultations None Procedures Performed Operation Date: 11/15/23 08:50 Actual Procedures p Left Total Knee Arthroplasty(Left) - Colby Ryan MD Ordered Studies 11/15/23 05:00 US - OR guided needle placemen Routine Hospital Course (1) Status post left knee replacement: Continue care pathway Total Time Total Time Spent Total Time Spent (In Minutes): 5 minutes Discharge Plan Discharge Items Patient Disposition: Home - Home Health Services Reason For Visit: Left Knee Degenerative Joint Disease Discharge Diagnosis: Left knee s/p total knee replacement Condition on Discharge: Good Activity: Per Instructions section Lifting: Gradually increase as tolerated Bathing: Keep incision dry Sexual Activity: Wait until after follow-up appointment Exercise/Sports: Wait until after follow-up appointment Driving/Machine Use: NO driving until cleared by Dr. Ryan Weightbearing: Full weightbearing Non-emergency contact: Surgeon Call non-emergency contact if: you have any medication questions, your pain is not controlled, your temperature is above 101.5, your wound has increased redness, your wound has increased drainage and your wound pain has increased Follow-up/Referrals: Hilaria Rahman MD [Primary Care Provider] - Diet: Regular Addtl Attending Provider Instructions: New Medicine: * You will likely be taking one or more of these medications: 1. Percocet - Take, as directed, when you need it, every four to six hours to control your pain. 2. Iron Sulfate - Take three times each day for the month after surgery to help you replace the blood lost during surgery. 3. Eliquis- Thins your blood to lessen the chance of forming a blood clot. * The most common side effects of pain medicine and iron are nausea and constipation. If nausea or constipation is too much of a problem or if you have any questions about your new medicines or doses, call [facility] at . We will try to help you manage these issues. "VERY IMPORTANT TO READ AND REVIEW" Blood Clots and Blood Thinning Medicine: * You are given Eliquis during the immediate post-operative period to lessen the risk of blood clots forming in your legs and/or lungs. It is usually given for 4 weeks after surgery. Pain: * The immediate post-operative period after knee replacement surgery is often quite painful. * You are given a prescription for pain medicine. You should take it, as directed, when you need it, especially before physical therapy and before going to bed. Pain that interferes with sleep is very common and can last several months. * You will likely need pain medicine for the first four to six weeks. It will not stop all of the pain. The pain will lessen and as you feel better, you may change to milder pain medicine such as Tylenol. * The most common side effects of pain medicine are nausea and constipation, so don't take more than you need. Physical Therapy: * You will have physical therapy two or three times each week for four to six weeks after your surgery in order to regain your knee range of motion and to retrain your knee to work properly. * It is just as important to make sure you are getting your knee perfectly straight as it is to regain your knee bend. * Taking a pain pill an hour before therapy can help you have a more productive and comfortable therapy session if needed. Home Exercise: * You were shown a series of exercises (heel props, heel slides, etc.) in the hospital. Do these exercises three to four times each day including the exercises you were shown in physical therapy. Walking: * Get up and walk several times each day. For the first four weeks, try not to stand or walk for more than one hour at a time. If you do stand or walk for more than one hour, you will not hurt anything, but your knee and leg will likely swell. * As you feel comfortable, you may change from the walker or crutches to a cane and then to independent walking. SELF CARE INSTRUCTIONS AFTER TOTAL KNEE REPLACEMENT A. You may need to continue a physical therapy program after discharge from the hospital. There are several options available to you. Your doctor will assist you in selecting the best one for you. 1. An out-patient facility 2 to 3 times a week for therapy or home therapy. 2. Continue working on all exercises taught to you in the hospital. Your goals should be to increase bending of your knee to 90 degrees and beyond and to fully straighten your knee. B. You may progress at your own pace from walking with a walker or crutches to a cane; then to no assistive devices. C. Make walking a part of your daily routine. Be up as much as comfortable with rest periods throughout the day. Rest with leg elevation is very important. Use the ice wrap frequently for the first 3-4 weeks. D. There are no restrictions on activities. You may ride in a car, shop, participate in certified first assistant and all social activities. E. Wear the long elastic stockings (REAGAN hose) 20 hours a day for six weeks after surgery. They can be removed several times a day for laundering and for a shower. F. Do not place a pillow behind your knee when resting. A pillow at your ankle is okay. VERY IMPORTANT TO READ AND REVIEW A. Take Eliquis (blood thinning medication) as directed by your doctor. B. There are a few signs you need to watch for after you are home. Call [facility] if you notice any of the followin. Increased severe knee pain. Some pain is expected especially when you exercise. 2. Increased swelling in your leg or knee; pain or swelling of the calf muscle in either lower leg. 3. Any fluid drainage from the incision. 4. Shortness of breath or chest pain. C. Please call [facility] at if you have any concerns or questions about your operation or recovery. The doctor or his nurse will return your call promptly. D. You must take antibiotics before dental work, bladder, bowel or other surgery. Call the office to obtain a prescription at least 2 days prior to your appointment. * CALL IF INCREASED PAIN, REDNESS, DRAINAGE OR FEVER GREATER THAT 101. * Sutures should be removed 12-14 days after surgery unless you are on chronic steriods, then it will be 14-18 days after surgery. Call your doctor if: * Temperature above 101 degrees F. * Pain not relieved by pain medicine ordered. * Increased drainage or redness from incision. * Notify your doctor with any questions or concerns. Wear your knee immobilizer when out of bed today and Monday. It can be discontinued entirely on Monday morning Start your Eliquis tonight with dinner. Take it 2x day x 4 weeks to prevent clots use your walker when ambulating follow up in the office in 2 weeks for staple removal as scheduled. Pending Studies at Discharge: Yes (Bone pathology) Studies:: bone pathology Stand-Alone Forms: My [facility], Smoking Cessation Medications and DC Order Prescriptions: New oxycodone-acetaminophen [Percocet] 5-325 mg tablet 2 tab PO Q6H PRN (Reason: pain) Qty: 18 0RF Rx Instructions: initial script Eliquis 2.5 mg tablet 2.5 mg PO BID Qty: 60 0RF No Action nitroglycerin [Nitro-Dur] 0.2 mg/hr Patch 24 Hour 1 patch TRANSDERMAL DAILY amlodipine 2.5 mg Tablet 5 mg PO QPM omeprazole 20 mg Capsule,Delayed Release(Dr/Ec) 20 mg PO BID potassium chloride 8 mEq Capsule, Extended Release 16 meq PO TID cholecalciferol (vitamin D3) [Vitamin D3] 25 mcg (1,000 unit) Tablet 2,000 unit PO QPM magnesium oxide 400 mg magnesium Capsule 400 mg PO QPM albuterol sulfate 90 mcg/actuation Hfa Aerosol Inhaler 2 inh INHALATION QID PRN (Reason: Wheezing) aspirin 81 mg Tablet,Delayed Release (Dr/Ec) 81 mg PO QAM hydrocodone-acetaminophen 10-325 mg Tablet 1 tab PO UD PRN (Reason: Pain) Rx Instructions: per pt she takes every 4 hours omega-3 fatty acids Capsule 1,000 mg PO DAILY Admission Data Admit Date/Time: 11/15/23 11:16 Attending Provider: Colby Ryan Admit Provider: Colby Ryan Primary Care Provider: Hilaria Rahman Other Providers: [facility],Home Health
--- NOTE | 2023-11-15 11:08 | Operative Report ---
Post Operative Report Pre & Post Diagnosis Operation Date: 11/15/23 08:50 Pre-Op Diagnosis: Left Knee End-Stage Degenerative Joint Disease Post-Op Diagnosis: Left Knee End-Stage Degenerative Joint Disease I identified the patient and participated in the time-out.: Yes Procedure Operation Date: 11/15/23 08:50 Actual Procedures p Left Total Knee Arthroplasty(Left) - Colby Ryan MD Surgeon AUDIE Ryan MD Bounty Trapper ROYA/Natalia TORREZ Estimated Blood Loss 50 Findings Consistent with Post-Op Diagnosis see operative report Specimens see operative report Drains none Complications none Disposition Accompanied Patient To Recovery: Yes Indications This 68 year old female presented to the office with complaints of persisting left knee pain. She had tried conservative care measures without improvement. She elected to proceed with surgical intervention after being educated about potential risks and outcomes. Preoperative imaging was obtained. She has a history of previous right total knee arthroplasty and has done well with it. She elected to proceed with the same on the left. Description of Procedure The patient was administered a spinal anesthetic and then taken to the operating room where she was given sedation. She was prepped and draped in the usual sterile fashion. Please see Dr. Ryan's operative report for specifics of the procedure. I was present for the entire case from initial patient positioning through final wound closure. Assistance was provided in tissue retraction, hemostasis, trial implant placement, final implant placement, and final wound closure. The patient was taken to the recovery room in satisfactory condition. I attest to the content of the Intraoperative Record and any orders documented therein. Any exceptions are noted below.
--- NOTE | 2023-11-15 11:11 | Operative Report ---
Post Operative Report Pre & Post Diagnosis Operation Date: 11/15/23 08:50 Pre-Op Diagnosis: Left Knee End-Stage Degenerative Joint Disease Post-Op Diagnosis: Left Knee End-Stage Degenerative Joint Disease I identified the patient and participated in the time-out.: Yes Procedure Operation Date: 11/15/23 08:50 Actual Procedures p Left Total Knee Arthroplasty(Left) - Colby Ryan MD Surgeon Colby Ryan MD Piece Jobber ROYA/Natalia TORREZ Estimated Blood Loss 50 Findings Consistent with Post-Op Diagnosis Same as postoperative diagnosis. Specimens The resected portions of the distal femur and the proximal tibia. Description of Procedure Please see detailed operative note. I attest to the content of the Intraoperative Record and any orders documented therein. Any exceptions are noted below.
[2023-11-15] MEDS: KETOROLAC 30 MG/ML VIAL IV PRN (11:16)
[2023-11-15] MEDS: HYDROmorphone INJ 1 MG/ML SYRINGE IV PRN (11:17)
--- NOTE | 2023-11-15 11:33 | XRay Report ---
XR knee LT 1 or 2V routine HISTORY: 68 years-old Female S/P L TKA left knee arthroplasty COMPARISON: 10/30/2023 TECHNIQUE: 2 views of the left knee FINDINGS: Total joint arthroplasty with patellar resurfacing. Anterior midline skin yamileth with expected posto perative soft tissue swelling and deep tissue air. No acute fracture or malalignment. IMPRESSION: Total joint arthroplasty with expected postoperative changes. ACT 112: Negative or not required by law. The above report was generated using voice recognition software. It may contain grammatical, syntax o r spelling errors. Electronically signed by: Maury Vee M.D. 11/15/2023 11:32 AM
--- NOTE | 2023-11-15 12:08 | Anesthesiology Progress Note ---
Date of Service November 15, 2023 Anesthesia Post Procedure Vital Signs Vital Signs: Temp Pulse Resp BP Pulse Ox O2 Del Method O2 Flow Rate 11/15/23 12:05 70 17 111/70 95 Nasal Cannula 3 11/15/23 11:50 76 16 133/88 95 Nasal Cannula 3 11/15/23 11:35 36.4 C L 73 16 128/78 95 Nasal Cannula 3 11/15/23 11:25 72 20 144/87 H 98 Nasal Cannula 3 11/15/23 11:15 81 17 131/78 98 Oxymask 6 11/15/23 11:06 36.5 C 88 19 127/98 99 Oxymask 6 11/15/23 07:20 Room Air 11/15/23 07:20 36.6 C 68 24 139/84 95 Room Air Pain Intensity Left Knee: Pain Intensity: 8 Transfer of Care Handoff Completed per policy Notes Mental Status: alert / awake / arousable Patient Amnestic to Procedure: Yes Nausea / Vomiting: adequately controlled Pain: adequately controlled Airway Patency, RR, SpO2: stable & adequate BP & HR: stable & adequate Hydration State: stable & adequate Anesthetic Complications: no major complications apparent
[2023-11-15] MEDS ORDERED: ALUMINUM/MAGNESIUM SUSP 30 ML UDC PO PRN (12:26)
[2023-11-15] MEDS ORDERED: NALOXONE HCL 0.4 MG/1 ML VIAL/CARP IV PRN (12:26)
[2023-11-15] MEDS ORDERED: VANCOMYCIN CONSULT ACTIVE PRN (12:26)
[2023-11-15] MEDS ORDERED: diphenhydrAMINE 50 MG/ML VIAL IV PRN (12:26)
[2023-11-15] MEDS ORDERED: METOCLOPRAMIDE HCL INJ 5 MG/ML 2 ML VIAL IV PRN (12:26)
[2023-11-15] MEDS ORDERED: MAGNESIUM HYDROXIDE SUSP 30 ML UDC PO PRN (12:26)
[2023-11-15] MEDS ORDERED: bisacodyL 10 MG SUPP PR PRN (12:26)
[2023-11-15] MEDS: SODIUM CHLORIDE 0.9% 1,000 ML IV SCH (12:47)
[2023-11-15] MEDS: fentaNYL citrate PF 100 MCG/2 ML VIAL ONE (13:25)
[2023-11-15] MEDS: oxyCODONE HCL IR 5 MG TAB (IMMEDIATE RELEASE) PO PRN (13:36)
[2023-11-15] MEDS: VANCOMYCIN HCL 1,750 MG in SODIUM CHLORIDE 0.9% 500 ML IV ONE (13:37)
[2023-11-15] MEDS: KETOROLAC TROMETHAMINE 15 MG/ML VIAL IV SCH (13:37)
[2023-11-15] MEDS: ACETAMINOPHEN 500 MG TAB PO SCH (13:37)
--- NOTE | 2023-11-15 13:47 | Orthopedic Progress Note ---
Date of Service November 15, 2023 Assessment & Plan Admission and Anticipated Discharge Date Admission Date: November 15, 2023 Orthopedic Progress Note She is doing well and neurovascular check femoral sciatic nerve is normal wound dressing clean dry and intact can do a straight leg raise can do ankle pumps. Asked her to start getting out of bed move around. Will saline lock her a feet she is eating well.
[2023-11-15] MEDS: POTASSIUM CHLORIDE 8 MEQ PO SCH (14:46)
[2023-11-15] MEDS: FERROUS GLUCONATE 324 MG TAB PO SCH (16:24)
[2023-11-15] MEDS: ASCORBIC ACID 500 MG TAB PO SCH (17:37)
[2023-11-15] MEDS: ALBUTEROL HFA 8 GM INHALER INH PRN (17:59)
[2023-11-15] MEDS: POTASSIUM CHLORIDE 10 MEQ TABCR PO SCH (21:07)
[2023-11-15] MEDS: PANTOprazole 40 MG TAB PO SCH (21:08)
[2023-11-15] MEDS: DOCUSATE SODIUM 100 MG CAP PO SCH (21:08)
[2023-11-15] MEDS: MAGNESIUM OXIDE 400 MG TAB PO SCH (21:08)
[2023-11-15] MEDS: amLODIPine BESYLATE 5 MG TAB PO SCH (21:08)
[2023-11-15] MEDS: SENNA 8.6 MG TAB PO SCH (21:09)
--- NOTE | 2023-11-16 06:17 | Orthopedic Progress Note ---
Date of Service November 16, 2023 Assessment & Plan Admission and Anticipated Discharge Date Admission Date: November 15, 2023 Orthopedic Progress Note Doing well is no major issues. Vital signs stable afebrile neurovascular check femoral sciatic nerve normal wound dressing clean dry intact. Will change later today. Discharge today after PT OT.
[2023-11-16] MEDS: dexAMETHasone 10 MG in SYRINGE 0 ML IV SCH (07:18)
[2023-11-16 08:17] LABS: Hematocrit (blood only) 35.8 % (37.0-47.0); Hemoglobin 11.6 g/dl (12.0-16.0); Mean Corpuscular Hemoglobin 27.8 pg (25.0-34.0); Mean Corpuscular Hgb Conc 32.4 g/dL (32.0-36.0); Mean Corpuscular Volume 85.9 fL (80.0-100.0); Mean Platelet Volume 10.1 fL (9.4-12.4); Platelet Count 218 K/uL (130-400); RDW Coefficient of Variation 14.7 % (11.5-14.5); RDW Standard Deviation 46.1 fL (36.4-46.3); Red Blood Count 4.17 M/uL (4.20-5.40); White Blood Count 6.28 K/ul (4.8-10.8)
[2023-11-16] MEDS: HYDROmorphone INJ 0.5 MG/0.5 ML SYR IV PRN (08:31)
[2023-11-16] MEDS: APIXABAN 2.5 MG TAB PO SCH (08:34)
[2023-11-16] MEDS: MULTIVITAMIN TAB PO SCH (08:36)
[2023-11-16] MEDS: ASPIRIN 81 MG ECTAB PO SCH (08:36)
[2023-11-16] MEDS: NITROGLYCERIN 0.2 MG/HR PATCH TD SCH (08:37)
[2023-11-16 09:13] LABS: BUN Creatinine Ratio 27.4 (10-20); Calcium 9.1 mg/dl (8.6-10.3); Creatinine Clr Calc Pharmacy 104.2 ml/min; Est GFR (African American) 105.9 ml/min; Est GFR (Non-African American) 91.4 ml/min
--- NOTE | 2023-11-16 09:58 | Orthopedic Progress Note ---
Date of Service November 16, 2023 Assessment & Plan (1) Status post left knee replacement: Plan: The patient was educated regarding today's findings. Her dressings were changed today by me. These will be left in place until Monday. They can be changed by home health nursing at that time if needed for soiling. Continue with ice and elevation. Use the knee immobilizer when out of bed today and tomorrow. It can be discontinued entirely on Monday. Call the office with any concerns. Prescriptions for Eliquis and Percocet have already been sent to her pharmacy. Continue using the walker for ambulation. Weight-bear as tolerated. Follow-up in the office in 2 weeks as scheduled on the . Admission and Anticipated Discharge Date Admission Date: November 15, 2023 Subjective This 68-year-old female is seen today in her room. She is 1 day status post left total knee arthroplasty. She states she is having some pain. It has been controlled with oral pain medication. She anticipates going home today. She has home health arranged. She denies any chest pain, shortness of breath, nausea, vomiting, or abdominal pain. She has been out of bed. No other complaints. Review of Systems Review of Systems: Unchanged from yesterday. Physical Exam Physical Exam: General: Well-developed, well-nourished, elderly female, in no acute distress. Obvious discomfort. Laying in bed. Obese. Alert and oriented. Skin: Warm and dry with good turgor. She has postsurgical dressings in place on the left knee. Upon removal, there is scant dried blood on her inner dressings. No active bleeding. Wound edges are well-approximated. Expected postoperative edema. Minimal ecchymosis. Musculoskeletal: The patient has intact motor function of her hip, knee, ankle, and toes. She is able to set her quad and perform straight leg raise. She has intact flexion and extension to the toes as well as dorsiflexion and plantarflexion of the ankle. Limited knee flexion secondary to discomfort. Neurologic: Gross sensation is intact across all aspects of the left leg by soft touch. Peripheral pulses are 2+. Results & Data Vital Signs (Past 12 Hours) Vital Signs Temp Pulse Resp BP Pulse Ox O2 Del Method O2 Flow Rate 11/16/23 08:00 Room Air 11/16/23 07:15 36.6 C 71 20 145/85 H 94 Room Air 11/16/23 02:27 36.7 C 74 20 127/77 96 Nasal Cannula 2 11/15/23 23:54 36.9 C 85 18 155/68 H 93 Nasal Cannula 2 Laboratory Results CBC obtained this morning shows a white count of 6.28. H&H of 11.6 and 35.8. Platelets 218,000. PRP shows normal sodium and potassium as well as CO2. Anion gap of 6. BUN of 17 with creatinine 0.62. These are normal. Glucose 109. Calcium 9.1.
== END 2023-11-16 13:16 | disposition home health service (06) ==
LOC: 3E 06:55 → ASU 06:55